=== PATIENT | male | born 1975 | race Caucasian/White ===

== ENCOUNTER 2017-07-01 23:39 | Emergency (ER) | payer SELFPAY ==
[2017-07-01 23:51] VITALS: BMI 25.1
[2017-07-01] MEDS ORDERED: Multivitamin (MVI) 10 ML, Thiamine 100 MG, Folic Acid 1 MG in Sodium Chloride 0.9% 1,00... IV ONE (23:53)
--- NOTE | 2017-07-01 23:54 | ED PDOC ---
Arrival/HPI <Burke Patrick - Last Filed: 07/02/17 00:24> - General Historian: Patient, Police EM Caveat: Intoxicated - History of Present Illness Time/Duration: Prior to Arrival Symptom Onset: Gradual Symptom Course: Unchanged Quality: Unable to Describe Severity Level: Mild <Charlee Montoya - Last Filed: 07/02/17 05:39> - General Chief Complaint: Alcohol Ingestion Time Seen by Provider: 07/01/17 23:53 - History of Present Illness Narrative History of Present Illness (Text): 07/01/17 23:54 42M brought in to ED via EMS/police for public intoxication with mechanical fall. Pt was found by police laying down on ground outside, attempting to sleep. Pt brought in for public intoxication and superficial facial abrasions. Pt pleasantly intoxicated, history limited due to intoxication. PMH:Denies PSH: Denies All: NKDA SH: Admits to ETOH use, admits to tobacco use, denies illicit drug us (Charlee Montoya) Past Medical History - Provider Review Nursing Documentation Reviewed: Yes - Past History Past History: No Previous - Infectious Disease Hx of Infectious Diseases: None - Tetanus Immunization Tetanus Immunization: Unknown - Past Medical History Past Medical History: No Previous - Psychiatric Hx Depression: No Hx Emotional Abuse: No Hx Physical Abuse: No Hx Substance Use: No - Past Surgical History Past Surgical History: No Previous - Suicidal Assessment Feels Threatened In Home Enviroment: No <Charlee Montoya - Last Filed: 07/02/17 05:39> Family/Social History - Physician Review Nursing Documentation Reviewed: Yes Family/Social History: No Known Family HX Smoking Status: Heavy Smoker > 10 Cigarettes Daily Hx Alcohol Use: Yes Hx Substance Use: No Hx Substance Use Treatment: No <Charlee Montoya - Last Filed: 07/02/17 05:39> Allergies/Home Meds <Burke Patrick - Last Filed: 07/02/17 00:24> <Charlee Montoya - Last Filed: 07/02/17 05:39> Allergies/Adverse Reactions: Allergies No Known Allergies Allergy (Verified 07/01/17 23:54) Review of Systems - Physician Review All systems were reviewed & negative as marked: Yes - Review of Systems Systems not reviewed;Unavailable: Intoxicated <Charlee Montoya - Last Filed: 07/02/17 05:39> Physical Exam Vital Signs Reviewed: Yes Temperature: Afebrile Blood Pressure: Normal Pulse: Regular Respiratory Rate: Normal Appearance: Positive for: Non-Toxic, Comfortable, Other (pleasantly intoxicated) Pain Distress: None Mental Status: No: Alert and Oriented X 3 - Systems Exam Head: Present: Contusion (front of forehead), Swelling (small area over front of forehead), Abrasion (over frontal hairline and bridge of nose). No: Atraumatic Pupils: Present: Sluggish Extroacular Muscles: Present: EOMI Conjunctiva: No: Injected Mouth: Present: Moist Mucous Membranes, Normal Tounge, Normal Teeth Nose (External): Present: Abrasion. No: Atraumatic Neck: Present: Normal Range of Motion Respiratory/Chest: Present: Clear to Auscultation, Good Air Exchange. No: Respiratory Distress, Accessory Muscle Use Cardiovascular: Present: Regular Rate and Rhythm. No: Murmurs, Normal S1, S2 Abdomen: Present: Normal Bowel Sounds. No: Tenderness, Distention, Peritoneal Signs Back: Present: Normal Inspection. No: CVA Tenderness Upper Extremity: Present: Normal Inspection. No: Cyanosis, Edema Lower Extremity: Present: Normal Inspection. No: Edema Neurological: Present: GCS=15, CN II-XII Intact. No: Speech Normal (slurred) Skin: Present: Warm, Dry, Normal Color, Abrasion (over frontal forehead and bridge of nose) Psychiatric: Present: Alert, Agitated, Intoxicated. No: Oriented x 3, Normal Insight, Normal Concentration <Charlee Montoya - Last Filed: 07/02/17 05:39> Vital Signs Temp Pulse Resp BP Pulse Ox 07/02/17 03:50 60 18 101/68 96 07/02/17 00:20 98.3 F 86 18 144/79 95 Medical Decision Making <Burke Patrick - Last Filed: 07/02/17 00:24> <Charlee Montoya - Last Filed: 07/02/17 05:39> ED Course and Treatment: Impression: Pt seen and evaluated with senior medical director. Pt brought in for alcohol intoxication status post fall with multiple facial abrasions. Aware and agree with HPI, clinical findings, plan, and management. Plan: -- Labs, alcohol level -- Urine drug screen -- Banana bag -- Reassess and disposition (Burke Patrick) 07/02/17 00:05 Pt seen/evaluated, currently intoxicated, will order drug screen, alcohol level and clean wounds. 07/02/17 00:09 Pt became agitated, continues with intoxication, unable to make medical decisions, will restrain due to agitation/violent behavior and give sedatives 07/02/17 02:00 Pt currently sleeping 07/02/17 03:24 Pt still sleeping 07/02/17 04:21 Pt still sleeping 07/02/17 05:38 Pt continues asleep. 07/02/17 07:[address] Mayes, pending pt sobriety, reassessment for final disposition. (Charlee Montoya) - Lab Interpretations Lab Results: Lab Results 07/02/17 00:35: Urine Opiates Screen Negative, Urine Methadone Screen Negative, Ur Barbiturates Screen Negative, Ur Phencyclidine Scrn Negative, Ur Amphetamines Screen Negative, U Benzodiazepines Scrn Negative, U Oth Cocaine Metabols Negative, U Cannabinoids Screen Negative 07/02/17 00:15: Alcohol, Quantitative 355 H* - RAD Interpretation Radiology Orders: 07/02/17 05:35 Brain [HEAD W/O CONTRAST] [CT] Stat - Medication Orders Current Medication Orders: Multivitamins/Vitamin C 10 ml/Thiamine HCl 100 mg/ Folic Acid 1 mg/ Sodium Chloride 1,011.2 mls @ 100 mls/hr IV .Q10H7M ONE Stop: 07/02/17 09:59 Last Admin: 07/02/17 00:20 Dose: 100 mls/hr eMAR Start Stop Document 07/02/17 00:20 RD (Rec: 07/02/17 01:40 RD [id number]) Intravenous Solution Start Date 07/02/17 Start Time 00:20 Discontinued Medications Haloperidol Lactate (Haldol) 5 mg IM STAT STA PRN Reason: Protocol Stop: 07/02/17 00:09 Last Admin: 07/02/17 00:16 Dose: 5 mg IM Administration Charges Document 07/02/17 00:16 RD (Rec: 07/02/17 00:16 RD [id number]) Injection Site MAR Injection Site Right Deltoid Charges for Administration # of IM Administrations 1 Lorazepam (Ativan) 2 mg IM ONCE ONE PRN Reason: Protocol Stop: 07/02/17 00:07 Last Admin: 07/02/17 00:16 Dose: 2 mg IM Administration Charges Document 07/02/17 00:16 RD (Rec: 07/02/17 00:17 RD [id number]) Injection Site MAR Injection Site Right Deltoid Charges for Administration # of IM Administrations 1 Tetanus/Reduced Diphtheria/Acell Pertussis (Boostrix Vaccine Inj) 0.5 ml IM .ONCE ONE Stop: 07/02/17 00:03 Last Admin: 07/02/17 01:42 Dose: 0.5 ml MAR Immunization Data Document 07/02/17 01:42 RD (Rec: 07/02/17 01:42 RD [id number]) Immunization Data Vaccine [employer] Vaccine Lot Number [id number] Vaccine Expiration Date 04/01/19 Site Given Left Deltoid Route Intramuscular Immunization Units ml - PA / [employer]ER / Resident Statement / has reviewed & agrees with the documentation as recorded. / has examined the patient and agrees with the treatment plan. <Burke Patrick - Last Filed: 07/02/17 00:24> Disposition/Present on Arrival <Burke Patrick - Last Filed: 07/02/17 00:24> - Present on Arrival Any Indicators Present on Arrival: No History of DVT/PE: No History of Uncontrolled Diabetes: No Urinary Catheter: No History Surgical Site Infection Following: None - Disposition Have Diagnosis and Disposition been Completed?: No Disposition Time: 07:00 <Charlee Montoya - Last Filed: 07/02/17 05:39> - Disposition Diagnosis: Alcohol abuse with intoxication, Facial abrasion Patient Problems: Current Active Problems Problem Status Onset Alcohol abuse with intoxication Acute Facial abrasion Acute Condition: STABLE Forms: [employer] (Bulgarian)
[2017-07-02] MEDS ORDERED: TDAP Vaccine 0.5 mL Syr IM ONE (00:02)
[2017-07-02 00:20] VITALS: TEMP 98.3
--- NOTE | 2017-07-02 07:07 | CT ---
EXAM: CT Head Without Intravenous Contrast CLINICAL HISTORY: 42 years old, male; Injury or trauma; Injury Trauma not specified. ; Initial encounter; Abrasion; Head, generalized TECHNIQUE: Axial computed tomography images of the head/brain without intravenous contrast. All CT scans at this facility use one or more dose reduction techniques, viz.: automated exposure control; ma/kV adjustment per patient size (including targeted exams where dose is matched to indication; i.e. head); or iterative reconstruction technique. COMPARISON: No relevant prior studies available. FINDINGS: Brain: Examination of the brain demonstrates normal structure and attenuation.The cortical aaron / white matter interfaces are preserved throughout the brain.No acute infarction, masses or hemorrhage is seen. No acute intracranial abnormality is identified.There is no hyperdense MCA sign.Examination of the posterior fossa demonstrates no significant abnormality. Ventricles: The ventricular system is not dilated and is appropriate for the patient's age. Bones/joints: Unremarkable. No acute fracture. Soft tissues: Unremarkable. Sinuses: Left maxillary and bilateral ethmoid sinusitis. Mastoid air cells: Unremarkable as visualized. No mastoid effusion. IMPRESSION: No acute infarction, masses or hemorrhage is seen. No acute intracranial abnormality is identified.
[2017-07-02 07:39] VITALS: BP 120/82; PULSE 70; RESP 16; O2SAT 99
== END 2017-07-02 07:39 | disposition home or self-care (01) ==
LOC: ED 23:39
DX: F10.129 Alcohol abuse with intoxication, unspecified (principal); Y90.8 Blood alcohol level of 240 mg/100 ml or more; S00.81XA Abrasion of other part of head, initial encounter; W18.30XA Fall on same level, unspecified, initial encounter; Y93.9 Activity, unspecified; Y92.9 Unspecified place or not applicable; Z23 Encounter for immunization
CPT/HCPCS: 70450; 90471; 90715; 96372; 99284; G0480; J1630; J2060; J3411; J7040

== ENCOUNTER 2018-02-27 07:57 | Emergency (ER) | payer MEDICAID ==
[2018-02-27 07:57] VITALS: BMI 25.1
--- NOTE | 2018-02-27 09:43 | ED PDOC ---
Arrival/HPI - General Historian: Patient <Sid Beaver - Last Filed: 02/27/18 17:24> - History of Present Illness Severity Level: Severe Activities at Onset: Rest Context: Home <Srikanth Kong - Last Filed: 02/27/18 20:20> - General Chief Complaint: Back Pain Time Seen by Provider: 02/27/18 08:41 - History of Present Illness Narrative History of Present Illness (Text): 02/27/18 09:54 This is a 42 yo M with PMH of prior alcohol abuse (current use up to 6 pack per day, last drink 03/26/18) and tobacco abuse (1ppd x 22 yrs) who presents for back pain and baseline SOB x1 month, with acute worsening of shortness of breath and left-sided chest pain x24 hours. As per patient, shortness of breath at baseline is due to worsened back pain with deep breaths, non-exertional. Yesterday, acute worsening of shortness of breath and start of chest pain began while walking to work, and did not improve with sitting and resting. Denies any similar episodes in past. Denies any personal hx of HTN, DM, CAD, but also admits to not following up with doctors since childhood. Only reported family hx is DM in mother, denies HTN/CAD in any 1st degree relatives. Denies illicits. No chest pain at rest now, but still has back pain (bilateral lumbar regions, no spinal involvement) without radiation, and still has worsening pain with deep breaths. Admits to dizziness even at rest, room spinning during the initial exacerbation but not currently, and near-syncope but no actual syncope. All other ROS in 12-system review negative. (Sid Beaver) Past Medical History - Past History Past History: No Previous - Infectious Disease Hx of Infectious Diseases: None - Tetanus Immunization Tetanus Immunization: Unknown - Past Medical History Past Medical History: No Previous - Psychiatric Hx Depression: No Hx Emotional Abuse: No Hx Physical Abuse: No Hx Substance Use: No - Past Surgical History Past Surgical History: No Previous - Anesthesia Hx Anesthesia: No Hx Anesthesia Reactions: No Hx Malignant Hyperthermia: No - Suicidal Assessment Feels Threatened In Home Enviroment: No <Sid Beaver - Last Filed: 02/27/18 17:24> - Provider Review Nursing Documentation Reviewed: Yes - Travel History Have you recently traveled outside [place] w/in the past 3 mons?: No <Srikanth Kong - Last Filed: 02/27/18 20:20> Family/Social History Family/Social History: Diabetes (mother). denies: Hypertension, CAD/[place] Smoking Status: Heavy Smoker > 10 Cigarettes Daily Hx Alcohol Use: Yes Hx Substance Use: No Hx Substance Use Treatment: No <Sid Beaver - Last Filed: 02/27/18 17:24> - Physician Review Nursing Documentation Reviewed: Yes <Srikanth Kong - Last Filed: 02/27/18 20:20> Allergies/Home Meds <Sid Beaver - Last Filed: 02/27/18 17:24> <Srikanth Kong - Last Filed: 02/27/18 20:20> Allergies/Adverse Reactions: Allergies No Known Allergies Allergy (Verified 02/27/18 08:33) Home Medications: Home Meds Medication Instructions Recorded Confirmed No Known Home Med 02/27/18 02/27/18 Review of Systems - Review of Systems Constitutional: Normal Eyes: Other (sensation of room spinning during exacerbation, none currently). absent: Vision Changes, Photophobia ENT: Normal. absent: Hearing Changes Respiratory: SOB (acutely worsened SOB x 24 hours, some at baseline x1 month). absent: Normal, Cough, Sputum, Wheezing Cardiovascular: Chest Pain (left-sided CP x24 hours without radiation, improved today), Palpitations. absent: Syncope (near-sycnope, but no syncope) Gastrointestinal: Normal. absent: Abdominal Pain, Constipation, Diarrhea, Nausea, Vomiting Genitourinary Male: Normal. absent: Dysuria, Hematuria Musculoskeletal: Back Pain (x1 month, bilateral lumbar region, no radiation, no spinal involvement) Neurological: Dizziness (on exertion and at rest, still present at time of exam) . absent: Normal, Focal Weakness, Gait Changes, Seizure Endocrine: Normal. absent: Diaphoresis Psychiatric: Normal. absent: Anxiety <Sid Beaver - Last Filed: 02/27/18 17:24> Physical Exam Vital Signs Reviewed: Yes Temperature: Afebrile Blood Pressure: Normal Pulse: Tachycardic Respiratory Rate: Normal Appearance: Positive for: Well-Appearing, Non-Toxic Pain Distress: None Mental Status: Positive for: Alert and Oriented X 3 - Systems Exam Head: Present: Atraumatic, Normocephalic Pupils: Present: PERRL. No: Sluggish, Non-Reactive, Pinpoint Extroacular Muscles: Present: EOMI. No: Gaze Palsy, Entrapment Conjunctiva: Present: Normal. No: Injected, Icteric Mouth: Present: Moist Mucous Membranes, Normal Lips, Normal Tounge, Normal Teeth. No: Dry, Drooling Nose (External): Present: Atraumatic. No: Abrasion, Laceration Nose (Internal): Present: Normal Inspection, No Active Bleeding. No: Epistaxis Neck: Present: Normal Range of Motion, Other (sternocleidomastoids not tense/ spastic, no tenderness in neck or arms with rotation/sidebending/compression). No: MIDLINE TENDERNESS, Paraspinal Tenderness, JVD Respiratory/Chest: Present: Clear to Auscultation, Good Air Exchange. No: Respiratory Distress, Accessory Muscle Use, Wheezes, Decreased Breath Sounds, Rales, Retracting, Rhonchi Cardiovascular: Present: Normal S1, S2, Tachycardic (tachy but regular rhythm). No: Murmurs, Irregular Rhythm Abdomen: Present: Normal Bowel Sounds. No: Tenderness, Distention, Peritoneal Signs, Feeding Tubes Back: Present: Other (reports tenderness "deep" at bilateral lumbar lateral regions, not acutely tender to palpation, mild spasm of quadratus lumborum region appreciated on exam). No: CVA Tenderness, Midline Tenderness, Paraspinal Tenderness Upper Extremity: Present: Normal Inspection, Normal ROM, NORMAL PULSES. No: Cyanosis, Edema, Tenderness, Swelling, Erythema, Deformity Lower Extremity: Present: Normal Inspection, NORMAL PULSES, Normal ROM. No: Edema, CALF TENDERNESS, Cyanosis, Tenderness, Swelling, Erythema, Deformity Neurological: Present: GCS=15, CN II-XII Intact, Speech Normal, Motor Func Grossly Intact, Normal Sensory Function Skin: Present: Warm, Other (Flushed diffusely, mildly diaphoretic). No: Rashes Psychiatric: Present: Alert, Oriented x 3, Normal Insight, Normal Concentration , Anxious <Sid Beaver - Last Filed: 02/27/18 17:24> Vital Signs Temp Pulse Resp BP Pulse Ox 02/27/18 15:17 98.4 F 64 20 150/94 H 97 02/27/18 14:00 88 18 154/87 H 99 02/27/18 12:34 82 18 161/98 H 98 02/27/18 10:00 80 16 162/88 H 99 02/27/18 08:38 98.3 F 79 88 H 155/89 H Medical Decision Making Reassessment Condition: Improving,but remains with symptoms <Sid Beaver - Last Filed: 02/27/18 17:24> Re-evaluation Time: 15:00 - Lab Interpretations I have reviewed the lab results: Yes Interpretation: All labs normal - RAD Interpretation Funding Analyst: Radiologist - EKG Interpretation Interpreted by ED Physician: Yes Type: 12 lead EKG Comparison: Similar to previous EKG <Srikanth Kong - Last Filed: 02/27/18 20:20> ED Course and Treatment: 02/27/18 10:16 Given tobacco hx and lack of medical follow up, plus corresponding chest pain and SOB, will need to rule out ACS. EKG, CXR, Trop, CBC, CMP, Mg, Phos, UTox, Alcohol lvl ordered, f/u, pending disposition. IF CXR is negative for widened mediastinum, will give ASA 81mg PO x1. 02/27/18 11:26 D-dimer elevated, will obtain CTA chest to rule out PE. Trop x1 negative, EKG NSR with normal intervals. ASA 81mg PO x1 ordered. 02/27/18 12:18 CTA negative for PE. Pending repeat trop at 4 hours, if negative, then patient wants to be discharged. Explained that if he wishes to go, he MUST follow up promptly with an outpatient physician for further workup. Also provided option of 24-hour obs admit for additional workup to rule out ACS. Patient declined admission, stating he will comply with prompt outpatient followup. Also instructed to start taking daily 81mg aspirin, and to avoid smoking and alcohol use while awaiting follow up, which patient expressed understanding and agreeement with. 02/27/18 15:08 Repeat Troponin negative. Patient again instructed to follow up in 2-3 days as outpatient, and he again expressed understanding and agreement with these instructions. He was then discharge to home. Patient seen, reviewed, and discussed with attending, Dr. Kong. (Sid Beaver) 02/27/18 Plan: chest pain, lower back pain -- EKG -- Labs -- Aspirin, Valium, Toradol -- Reassess and disposition Progress Notes: In agreement with resident note, which includes further HPI details. Patient was seen and evaluated with resident, came up with plan and treatment together. I performed the hx and physical exam of the patient and discussed their mgt with the RESIDENT. I reviewed the RESIDENT's NOTE and agree with the assessment and plan of care. vital signs stable pt is comfortable pt is not in any distress pt is made aware of his medical results pt is encouraged smoking cessation/avoid drinking alcohol pt is encouraged outpt f/u pt will be discharged home (Srikanth Kong) - Lab Interpretations Lab Results: 02/27/18 10:10 02/27/18 10:10 Lab Results 02/27/18 14:15: Troponin I < 0.01 02/27/18 11:20: Urine Opiates Screen Negative, Urine Methadone Screen Negative, Ur Barbiturates Screen Negative, Ur Phencyclidine Scrn Negative, Ur Amphetamines Screen Negative, U Benzodiazepines Scrn Negative, U Oth Cocaine Metabols Negative, U Cannabinoids Screen Negative 02/27/18 10:10: pO2 70 H, VBG pH 7.39, VBG pCO2 43.0, VBG HCO3 26.0, VBG Total CO2 27.3, VBG O2 Sat (Calc) 97.6 H, VBG Base Excess 0.8, VBG Potassium 4.2, Sodium 138.0, Chloride 109.0 H, Glucose 80, Lactate 1.2, FiO2 21.0, Venous Blood Potassium 4.2 02/27/18 10:10: Alcohol, Quantitative 25 H 02/27/18 10:10: Sodium 142, Chloride 108 H, Potassium 4.3, Carbon Dioxide 24, Anion Gap 14, BUN 13, Creatinine 0.7 L, Est GFR ( Amer) > 60, Est GFR ( Non-Af Amer) > 60, Random Glucose 78, Calcium 8.9, Phosphorus 1.9 L, Magnesium 1.7, Total Bilirubin 0.2, AST 29, ALT 32, Alkaline Phosphatase 60, Troponin I < 0.01, Total Protein 6.9, Albumin 3.9, Globulin 2.9, Albumin/Globulin Ratio 1.3, Amylase 59, Lipase 86 02/27/18 10:10: WBC 7.1, RBC 4.69, Hgb 14.6, Hct 42.3, MCV 90.2, MCH 31.1, MCHC 34.5, RDW 13.3, Plt Count 277, MPV 9.0, Gran % 61.9, Lymph % (Auto) 30.6, Foster % (Auto) 6.3 H, Eos % (Auto) 0.6 L, Baso % (Auto) 0.6, Gran # 4.41, Lymph # ( Auto) 2.2, Foster # (Auto) 0.5, Eos # (Auto) 0.0, Baso # (Auto) 0.04 02/27/18 10:10: D-Dimer, Quantitative 328 H - RAD Interpretation Narrative RAD Interpretations (Text): 02/27/18 12:00 Chest X-ray: Creator : Tomasa Walker MD COMPARISON: 09/04/2013. FINDINGS: LINES AND TUBES: None. LUNG AND PLEURA: The lungs are well inflated and clear. No pleural effusion or pneumothorax. HEART AND MEDIASTINUM: The heart is not enlarged. The hilar and mediastinal contours are within normal limits. SKELETAL STRUCTURES: The bony structures are within normal limits for the patient's age. VISUALIZED UPPER ABDOMEN: Normal. OTHER FINDINGS: None. IMPRESSION: No active pulmonary disease. 02/27/18 12:[address]: Creator : Tomasa Walker MD FINDINGS: PULMONARY ARTERIES: There are no filling defects in the pulmonary arteries to suggest acute pulmonary embolism. AORTA: The aorta is not dilated. LUNGS: The lungs are well inflated and clear. There is linear atelectasis in the lingula. . No nodule, mass or pulmonary consolidation. PLEURAL SPACES: No effusion or pneuomothorax. HEART: The heart is normal in size. No pericardial effusion. LYMPH NODES: No pathologic mediastinal or hilar lymphadenopathy. BONES, CHEST WALL: Within normal limits for the patient's age. No fracture or destructive lesion OTHER FINDINGS: Unremarkable. IMPRESSION: No CTA evidence for acute pulmonary embolism. Clear lungs. (Srikanth Kong) Radiology Orders: 02/27/18 09:24 CHEST TWO VIEWS (PA/LAT) [RAD] Stat 02/27/18 11:17 ANGIO CHEST PE PROTOCOL [CT] Stat - EKG Interpretation EKG Interpretation (Text): 02/27/18 20:20 NSR at 85 bpm, normal axis, no ectopy, no st-t changes, normal EKG (Srikanth Kong) - Medication Orders Current Medication Orders: Discontinued Medications Aspirin (Aspirin Chewable) 81 mg PO STAT STA Stop: 02/27/18 12:04 Last Admin: 02/27/18 12:33 Dose: 81 mg Diazepam (Valium) 5 mg PO ONCE PRN; Protocol PRN Reason: back pain Ketorolac Tromethamine (Toradol) 15 mg IVP STAT STA Stop: 02/27/18 10:23 Last Admin: 02/27/18 11:04 Dose: 15 mg [facility] Pain Assessment Document 02/27/18 11:04 [facility] (Rec: 02/27/18 11:05 [id number] Pain Reassessment Is this a pain reassessment? No Sleep Is patient sleeping during reassessment? No Presence of Pain Presence of Pain Yes Pain Scale Used Pain Scale Used Numeric Description Description Intermittent IVP Administration Document 02/27/18 11:04 [facility] (Rec: 02/27/18 11:05 [id number] Charges for Administration # of IVP Administrations 1 Re-Assess: [facility] Pain Assessment Document 02/27/18 12:04 [facility] (Rec: 02/27/18 15:02 [id number] Pain Reassessment Is this a pain reassessment? Yes Sleep Is patient sleeping during reassessment? No Presence of Pain Presence of Pain Yes Description Description Intermittent Intensity of Pain at present 4 <Sid Beaver - Last Filed: 02/27/18 17:24> - PA / FURNACE REPAIRER HELPER / Resident Statement MD/DO has reviewed & agrees with the documentation as recorded. MD/DO has examined the patient and agrees with the treatment plan. - Scribe Statement The provider has reviewed the documentation as recorded by the Scribe <Srikanth Kong - Last Filed: 02/27/18 20:20> - Scribe Statement Anamaria Mcleod Provider Scribe Attestation: All medical record entries made by the Scribe were at my direction and personally dictated by me. I have reviewed the chart and agree that the record accurately reflects my personal performance of the history, physical exam, medical decision making, and the department course for this patient. I have also personally directed, reviewed, and agree with the discharge instructions and disposition. (Srikanth Kong) Disposition/Present on Arrival - Present on Arrival Any Indicators Present on Arrival: No History of DVT/PE: No History of Uncontrolled Diabetes: No Urinary Catheter: No History of Decub. Ulcer: No History Surgical Site Infection Following: None - Disposition Have Diagnosis and Disposition been Completed?: Yes Disposition Time: 15:08 Patient Plan: Discharge <Sd,Sid - Last Filed: 02/27/18 17:24> <Srikanth Kong - Last Filed: 02/27/18 20:20> - Disposition Diagnosis: Shortness of breath, Chest pain, Tobacco abuse Disposition: HOME/ ROUTINE Condition: GOOD Discharge Instructions (ExitCare): Smoking: Not Just Harmful to Your Lungs and Heart, Shortness of Breath (Dyspnea), Chest Pain (ED) Print Language: YAKUT Additional Instructions: -You were seen in the [facility] for shortness of breath and left sided chest pain x1 day. Labs and scans obtained indicated that you do not have a blood clot in your lungs (Pulmonary Embolism), and were not suggestive of Acute Coronary Syndrome (ACS). -Please establish yourself with a PMD and follow up within 2-3 days of discharge. You have been given a card for the [facility] here in the hospital if you wish to follow up here. -Please abstain from further alcohol and tobacco use until you follow up with your outpatient physician. -You were offered an admission for observation, but you refused. It is extremely important that you follow up with physicians as instructed, and avoid further alcohol or tobacco use until that time. -Please start taking a daily 81mg aspirin until you have followed up with an outpatient physician. You have already been given 1 dose today. 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 -Please return to a hospital if you experience new or concerning symptoms. Referrals: Wu White, [Primary Care Provider] - Follow up with primary Forms: [employer] (Georgian), WORK NOTE
[2018-02-27 10:23] LABS: BASO # 0.04 K/mm3 (0.0-2.0); BASO % 0.6 % (0.0-3.0); EOS % 0.6 % (1.5-5.0); GRAN # 4.41 (1.4-6.5); GRAN % 61.9 % (50.0-68.0); HEMOGLOBIN 14.6 g/dL (14.0-18.0); LYMPH # 2.2 (1.2-3.4); LYMPH % 30.6 % (22.0-35.0); MEAN CELL VOLUME 90.2 fl (80.0-105.0); MEAN CORPUSCULAR HEMOGLOBIN 31.1 pg (25.0-35.0); MEAN CORPUSCULAR HGB CONC 34.5 g/dl (31.0-37.0); MONO # 0.5 (0.1-0.6); MONO % 6.3 % (1.0-6.0); RBC 4.69 10^6/uL (3.5-6.1); RED CELL DISTRIBUTION WIDTH 13.3 % (11.5-14.5); VENOUS BLOOD GAS BASE EXCESS 0.8 mmol/L (0.0-2.0); VENOUS BLOOD GAS PO2 70 mm/Hg (30-55); VENOUS BLOOD PH 7.39 (7.32-7.43); WHITE BLOOD COUNT 7.1 10^3/ul (4.5-11.0)
[2018-02-27 10:37] LABS: ALB/GLOB RATIO 1.3 (1.1-1.8); ALBUMIN 3.9 g/dL (3.0-4.8); AMYLASE 59 U/L (35-125); CALCIUM 8.9 mg/dL (8.4-10.5); GFR AFRICAN-AMERICAN > 60; GFR NON-AFRICAN AMERICAN > 60; LIPASE 86 U/L (23-300)
[2018-02-27 10:48] LABS: TROPONIN I < 0.01 ng/mL
[2018-02-27 10:50] LABS: ALT/SGPT 32 U/L (7-56); AST/SGOT 29 U/L (17-59); BLOOD UREA NITROGEN 13 mg/dL (7-21)
[2018-02-27] MEDS ORDERED: Iohexol 350 MG/100 ML VIAL ONE (11:28)
--- NOTE | 2018-02-27 11:42 | RAD ---
HISTORY: COMPARISON: 09/04/2013. TECHNIQUE: Chest PA and lateral FINDINGS: LINES AND TUBES: None. LUNG AND PLEURA: The lungs are well inflated and clear. No pleural effusion or pneumothorax. HEART AND MEDIASTINUM: The heart is not enlarged. The hilar and mediastinal contours are within normal limits. SKELETAL STRUCTURES: The bony structures are within normal limits for the patient's age. VISUALIZED UPPER ABDOMEN: Normal. OTHER FINDINGS: None. IMPRESSION: No active pulmonary disease.
[2018-02-27 11:49] LABS: BARBITURATES, UR NEGATIVE (NEGATIVE); BENZODIAZEPINES, UR NEGATIVE (NEGATIVE); OPIATES, UR NEGATIVE (NEGATIVE); PHENCYCLIDINE, UR NEGATIVE (NEGATIVE)
--- NOTE | 2018-02-27 12:11 | CT ---
PROCEDURE: CT Chest with contrast (Pulmonary Angiogram) HISTORY: Chest pain, shortness of breath, dimer, smoker COMPARISON: Plain radiographs performed earlier the same day. TECHNIQUE: Axial computed tomography images were obtained of the chest in the pulmonary arterial phase of enhancement. Coronal and sagittal reformatted images were created and reviewed. Intravenous contrast dose: 100 mL Omnipaque 350 Radiation dose: Total exam DLP = 509.82 mGy-cm. This CT exam was performed using one or more of the following dose reduction techniques: Automated exposure control, adjustment of the mA and/or kV according to patient size, and/or use of iterative reconstruction technique. FINDINGS: PULMONARY ARTERIES: There are no filling defects in the pulmonary arteries to suggest acute pulmonary embolism. AORTA: The aorta is not dilated. LUNGS: The lungs are well inflated and clear. There is linear atelectasis in the lingula. . No nodule, mass or pulmonary consolidation. PLEURAL SPACES: No effusion or pneuomothorax. HEART: The heart is normal in size. No pericardial effusion. LYMPH NODES: No pathologic mediastinal or hilar lymphadenopathy. BONES, CHEST WALL: Within normal limits for the patient's age. No fracture or destructive lesion OTHER FINDINGS: Unremarkable. IMPRESSION: No CTA evidence for acute pulmonary embolism. Clear lungs.
[2018-02-27 15:19] VITALS: BP 150/94; PULSE 64; RESP 20; TEMP 98.4; O2SAT 97
--- NOTE | 2018-02-27 15:57 | CARD ---
APPROVED REPORT EKG Measurement Heart [id number] <Conclusion> Normal sinus rhythm Normal ECG
== END 2018-02-27 15:20 | disposition home or self-care (01) ==
LOC: ED 07:57
DX: R06.02 Shortness of breath (principal); R07.9 Chest pain, unspecified; F17.210 Nicotine dependence, cigarettes, uncomplicated
CPT/HCPCS: 71046; 71275; 80053; 80320; 80324; 80345; 80346; 80349; 80353; 80358; 80361; 82150; 82803; 83690; 83735; 83992; 84100; 84484; 85025; 85378; 93005; 96374; 99283; J1885; Q9967

== ENCOUNTER 2019-02-20 13:16 | Observation (INO) | payer MEDICAID, OTHER ==
[2019-02-20] MEDS ORDERED: Morphine 4 mg/ml ISec IVP STA ×2 (14:42→18:07)
--- NOTE | 2019-02-20 15:29 | ED PDOC ---
Arrival/HPI - General Historian: Patient - History of Present Illness Narrative History of Present Illness (Text): 02/20/19 15:25 A 43 year old male presents to the emergency department with a 3 day history of worsening abdominal pain and back pain. He says the pain started in the abdomen about 3 days ago and has been gradually worsening. He describes the pain as sharp and achy and rates the pain as a 7 out of 10. He is also complaining of severe lower back pain. 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 He denies testicular pain, numbness, weakness, or tingling in the extremities. He does state that intermittently he has been getting cramping in his hands. No medications were taken for pain at home today. Patient states he is a smoker and smokes packs of cigarettes per day and states he drinks only on Fridays, and did not drink this past Monday. She denies fevers, chills, headache, dizziness, chest pain, shortness of breath, dyspnea on exertion, cough, nausea, vomiting, diarrhea, neck pain, urinary/bowel changes, or any other complaint. Time/Duration: Other (3 days) Symptom Onset: Sudden Symptom Course: Unchanged Activities at Onset: Rest, Light Context: Home <Kelsi Pollard - Last Filed: 02/20/19 20:17> <Sean Mayes - Last Filed: 02/25/19 12:06> - General Chief Complaint: Back Pain Time Seen by Provider: 02/20/19 14:09 Past Medical History - Provider Review Nursing Documentation Reviewed: Yes Primary Care Provider: Non [facility] Provider, - Past History Past History: No Previous - Infectious Disease Hx of Infectious Diseases: None - Tetanus Immunization Tetanus Immunization: Unknown - Past Medical History Past Medical History: No Previous - Psychiatric Hx Depression: No Hx Emotional Abuse: No Hx Physical Abuse: No Hx Substance Use: No - Past Surgical History Past Surgical History: No Previous - Anesthesia Hx Anesthesia: No Hx Anesthesia Reactions: No Hx Malignant Hyperthermia: No - Suicidal Assessment Feels Threatened In Home Enviroment: No <Kelsi Pollard - Last Filed: 02/20/19 20:17> Family/Social History - Physician Review Nursing Documentation Reviewed: Yes Family/Social History: No Known Family HX Smoking Status: Heavy Smoker > 10 Cigarettes Daily Hx Alcohol Use: Yes Hx Substance Use: No Hx Substance Use Treatment: No <Kelsi Pollard - Last Filed: 02/20/19 20:17> Allergies/Home Meds <Kelsi Pollard - Last Filed: 02/20/19 20:17> <Sean Mayes - Last Filed: 02/25/19 12:06> Allergies/Adverse Reactions: Allergies No Known Allergies Allergy (Verified 02/20/19 14:02) Review of Systems - Physician Review All systems were reviewed & negative as marked: Yes - Review of Systems Constitutional: absent: Fatigue, Fevers ENT: absent: Sore Throat, Sinus Congestion Respiratory: absent: SOB, Cough Cardiovascular: absent: Chest Pain, Palpitations, MITCHELL Gastrointestinal: Abdominal Pain, Nausea. absent: Stool Changes, Diarrhea, Vomiting Genitourinary Male: absent: Dysuria, Frequency, Hematuria, Urinary Output C hanges Musculoskeletal: Back Pain. absent: Arthralgias, Neck Pain Skin: absent: Rash, Pruritis Neurological: absent: Headache, Dizziness, Speech Changes, Facial Droop Psychiatric: absent: Anxiety, Depression, Suicidal Ideation <Kelsi Pollard - Last Filed: 02/20/19 20:17> Physical Exam Vital Signs Reviewed: Yes Vital Signs Temp Pulse Resp BP Pulse Ox 02/20/19 13:57 98.5 F 108 H 18 172/109 H 99 Temperature: Afebrile Blood Pressure: Hypertensive Pulse: Tachycardic Respiratory Rate: Normal Appearance: Positive for: Well-Appearing, Non-Toxic, Comfortable Pain Distress: None Mental Status: Positive for: Alert and Oriented X 3 - Systems Exam Head: Present: Atraumatic, Normocephalic Conjunctiva: Present: Normal Mouth: Present: Moist Mucous Membranes Nose (Internal): Present: Normal Inspection Neck: Present: Normal Range of Motion Respiratory/Chest: Present: Clear to Auscultation, Good Air Exchange. No: Respiratory Distress, Accessory Muscle Use Cardiovascular: Present: Normal S1, S2, Tachycardic. No: Murmurs Abdomen: Present: Tenderness (Diffuse abdominal tenderness), Normal Bowel Sounds, Guarding. No: Distention, Peritoneal Signs, Rebound Back: Present: Midline Tenderness, Paraspinal Tenderness, Other (Diffuse back tenderness). No: Normal Inspection, Pain with Leg Raise Upper Extremity: Present: Normal Inspection, Normal ROM, Neurovascularly Intact. No: Cyanosis, Edema Lower Extremity: Present: Normal Inspection, Normal ROM. No: Edema, CALF TENDERNESS Neurological: Present: GCS=15, Speech Normal Skin: Present: Warm, Dry, Normal Color. No: Rashes Psychiatric: Present: Alert, Oriented x 3, Normal Insight, Normal Concentration, Anxious <Kelsi Pollard - Last Filed: 02/20/19 20:17> Vital Signs Temp Pulse Resp BP Pulse Ox 02/20/19 21:40 94 H 14 145/98 H 96 02/20/19 20:51 94 H 13 155/95 H 100 02/20/19 20:29 68 178/101 H 02/20/19 19:26 97.6 F 78 19 172/101 H 98 02/20/19 17:32 98.4 F 93 H 17 170/97 H 95 02/20/19 15:40 104 H 19 184/98 H 97 02/20/19 13:57 98.5 F 108 H 18 172/109 H 99 <Sean Mayes - Last Filed: 02/25/19 12:06> Medical Decision Making ED Course and Treatment: 02/20/19 15:30 Impression: A 43 year old male presents to the emergency department with a complaint of 3 day duration abdominal and back pain. Plan: -- Angio CT -- EKG -- Chest X-ray -- Urinalysis -- Labs -- Morphine -- Reassess and disposition Prior Visits: Notes and results from previous visits were reviewed. Progress Notes: Patient was found to be hypertensive tachycardic complaining of severe back pain and abdominal pain. Case discussed with Dr. Mayes in depth. CT angio dissection protocol ordered Patient given morphine for pain with Zofran. CBC within normal limits CMP elevated LFTs Magnesium: 1.2 EKG normal sinus rhythm at [address] elevations QTC 475 UA: Ketones > [address]:FINDINGS: CT ANGIOGRAPHY OF THE CHEST WITH & WITHOUT CONTRAST: AORTA (CHEST AND ABDOMEN): The thoracic and abdominal aorta are unremarkable, without aneurysm, dissection or rupture. No intramural thrombus identified in the thoracic aorta on the non-contrast CT scan of the chest.. The ascending thoracic aorta measures approximately 3.4 cm and descending thoracic aorta measures approximately 2.0 cm. The celiac axis, superior mesenteric artery, inferior mesenteric artery and the renal arteries are widely patent. The pelvic arteries are unremarkable. Pulmonary trunk measures approximate 3.1 cm. No evidence of acute central pulmonary embolus LUNGS: No acute consolidation. Small bleb again seen adjacent to the right p arasagittal upper mediastinum. There may also be a tiny left anteriorly located in the right upper lobe. MEDIASTINUM: Heart size within range of normal. No significant pericardial effusion. Several small nonspecific mediastinal lymph nodes are present. No significant hilar adenopathy. Trachea midline and patent with no large central endoluminal lesions. There is a small hiatal hernia. LYMPH NODES: As above. PLEURA: Unremarkable. No pneumothorax. No pleural fluid. BONES: Unremarkable. OTHER FINDINGS: None. CT ANGIOGRAPHY OF THE ABDOMEN AND PELVIS WITH CONTRAST: LIVER: Liver is enlarged measuring nearly 20 cm in CC dimension. Moderate to fairly significant diffuse fatty hepatic infiltration. Portal and splenic veins are opacified. GALLBLADDER AND BILE DUCTS: Gallbladder physiologically distended. No evidence of intraluminal gallbladder calculi. PANCREAS: Pancreas appears unremarkable without masses collections or calcifications. SPLEEN: Spleen exhibits normal size and attenuation pattern without mass collection calcification. ADRENALS: There are no adrenal lesions seen. KIDNEYS AND URETERS: Kidneys demonstrate relatively symmetric nephrograms. No evidence of nephrolithiasis or hydronephrosis. VASCULATURE: Unremarkable. No aortic aneurysm. Mild aortic atherosclerotic calcification or mural plaque present. STOMACH AND BOWEL: Evaluation of the bowel is limited due to the lack of oral contrast material. Stomach is incompletely distended with slight thick-walled appearance. Visualized loops of small bowel exhibit normal contour caliber. No evidence mechanical small bowel obstruction. APPENDIX: Normal appendix. PERITONEUM: Unremarkable. No free fluid. No free air. There is a small fat containing umbilical hernia LYMPH NODES: Unremarkable. No enlarged lymph nodes. BLADDER: Urinary bladder incompletely distended with slight thick-walled appearance. Muscular hypertrophy may contribute however correlation with urinalysis to exclude cystitis. REPRODUCTIVE: Small prostatic calcification present. BONES: No acute fracture. OTHER FINDINGS: None. IMPRESSION: No evidence of aortic aneurysm, rupture or dissection. No evidence to suggest acute central pulmonary embolus Hepatomegaly with significant fatty hepatic infiltration. Small of bleb medial aspect right upper lung field. pt reassessment; pt with continued pain; bp improved, hr improved; still slightly tachycardic, still hypertensive. morphine and zofran added. magnesium added. banana bag added. case discussed with dr joseph; accepts obs admission. will place on remote tele for intractable abdominal pain, with tachycardia and hypertension. impression: Intractable abdominal pain, tachycardia, hypertension Admit to remote telemetry, observational status - Lab Interpretations I have reviewed the lab results: Yes - RAD Interpretation Radiology Orders: 02/20/19 14:40 CHEST PORTABLE [RAD] Stat 02/20/19 14:41 ANGIOGRAPHY DISECTION PROTOCOL [CT] Stat - EKG Interpretation Interpreted by ED Physician: Yes Type: 12 lead EKG - Medication Orders Current Medication Orders: Discontinued Medications Morphine Sulfate (Morphine) 4 mg IVP STAT STA Stop: 02/20/19 14:43 <Kelsi Pollard T - Last Filed: 02/20/19 20:17> - Lab Interpretations Lab Results: PT 11.9 SECONDS (9.4-12.5) 02/22/19 06:10 INR 1.05 02/22/19 06:10 Troponin I < 0.01 ng/mL 02/20/19 15:10 Total Bilirubin 1.1 mg/dL (0.2-1.3) 02/22/19 06:10 AST 44 U/L (17-59) 02/22/19 06:10 ALT 53 U/L (7-56) 02/22/19 06:10 Alkaline Phosphatase 79 U/L (38-126) 02/22/19 06:10 Total Protein 7.0 g/dL (5.8-8.3) 02/22/19 06:10 Albumin 3.9 g/dL (3.0-4.8) 02/22/19 06:10 Globulin 3.2 gm/dL 02/22/19 06:10 Albumin/Globulin Ratio 1.2 (1.1-1.8) 02/22/19 06:10 Lipase 77 U/L (23-300) 02/20/19 15:10 Urine Color Yellow (YELLOW) 02/20/19 15:40 Urine Appearance Sl cloudy (CLEAR) 02/20/19 15:40 Urine pH 6.0 (4.7-8.0) 02/20/19 15:40 Ur Specific Snowflake >= 1.030 (1.005-1.035) 02/20/19 15:40 Urine Protein 30 mg/dL (<30 mg/dL) H 02/20/19 15:40 Urine Glucose (UA) Negative mg/dL (NEGATIVE) 02/20/19 15:40 Urine Ketones >=80 mg/dL (NEGATIVE) 02/20/19 15:40 Urine Blood Negative (NEGATIVE) 02/20/19 15:40 Urine Nitrate Negative (NEGATIVE) 02/20/19 15:40 Urine Bilirubin Small (NEGATIVE) H 02/20/19 15:40 Urine Urobilinogen 0.2 E.U./dL (<1 E.U./dL) 02/20/19 15:40 Ur Leukocyte Esterase Negative Balaji/uL (NEGATIVE) 02/20/19 15:40 Urine RBC None /hpf (0-2) 02/20/19 15:40 Urine WBC 2 - 5 /hpf (0-6) 02/20/19 15:40 Ur Epithelial Cells 4 - 5 /hpf (0-5) 02/20/19 15:40 Urine Bacteria Few /hpf (NONE) 02/20/19 15:40 - RAD Interpretation Radiology Orders: 02/20/19 14:40 CHEST PORTABLE [RAD] Stat 02/20/19 14:41 ANGIOGRAPHY DISECTION PROTOCOL [CT] Stat - Medication Orders Current Medication Orders: Discontinued Medications Dicyclomine HCl (Bentyl) 10 mg PO QID PRN PRN Reason: Abd discomfort Folic Acid (Folic Acid) 1 mg PO DAILY [facility] Last Admin: 02/22/19 09:37 Dose: 1 mg Heparin Sodium (Porcine) (Heparin) 5,000 units SC Q8 [facility]; Protocol Last Admin: 02/21/19 13:12 Dose: 5,000 units Subcutaneous Administrations Document 02/21/19 13:12 GG (Rec: 02/21/19 13:12 GG [id number]) Injection Site MAR Injection Site Right Arm Charges for Administration # of Subcutaneous Administrations 1 Hydralazine HCl (Apresoline) 10 mg IVP ONCE ONE Stop: 02/20/19 20:08 Last Admin: 02/20/19 20:29 Dose: 10 mg IVP Administration Document 02/20/19 20:29 EB (Rec: 02/20/19 20:35 EB [id number]) Charges for Administration # of IVP Administrations 1 MAR Pulse and Blood Pressure Document 02/20/19 20:29 EB (Rec: 02/20/19 20:35 EB [id number]) Pulse Pulse Rate (60-90) 68 Blood Pressure Blood Pressure (100/60-150/90) 178/101 Hydralazine HCl (Apresoline) 10 mg IVP ONCE ONE Stop: 02/20/19 23:42 Last Admin: 02/21/19 00:11 Dose: 10 mg IVP Administration Document 02/21/19 00:11 EBONIE (Rec: 02/21/19 00:11 OLIVZhou [id number]) Charges for Administration # of IVP Administrations 1 MAR Pulse and Blood Pressure Document 02/21/19 00:11 OLIVZhou (Rec: 02/21/19 00:11 OLIVZhou [id number]) Pulse Pulse Rate (60-90) 74 Blood Pressure Blood Pressure (100/60-150/90) 177/97 Multivitamins/Vitamin C 10 ml/Thiamine HCl 100 mg/ Folic Acid 1 mg/ Sodium Chloride 1,011.2 mls @ 100 mls/hr IV .Q10H7M ONE Stop: 02/21/19 04:27 Last Admin: 02/20/19 18:57 Dose: 100 mls/hr eMAR Start Stop Document 02/20/19 18:57 CD (Rec: 02/20/19 19:00 CD [id number] Intravenous Solution Start Date 02/20/19 Start Time 18:59 Magnesium Sulfate (Magnesium Sulfate 2 Gm/50 Ml Water) 2 gm in 50 mls @ 50 mls/hr IVPB ONCE ONE Stop: 02/20/19 19:38 Last Admin: 02/20/19 19:02 Dose: 50 mls/hr eMAR Start Stop Document 02/20/19 19:02 CD (Rec: 02/20/19 19:02 CD [id number] Intravenous Solution Start Date 02/20/19 Start Time 19:02 End Date 02/20/19 End time 20:02 Total Infusion Time 60 Lactated Ringer's (Lactated Ringer's) 1,000 mls @ 100 mls/hr IV .Q10H SHANNAN Last Admin: 02/21/19 09:24 Dose: 100 mls/hr eMAR Start Stop Document 02/21/19 09:24 GGM (Rec: 02/21/19 09:24 GGM [id number]) Intravenous Solution Start Date 02/21/19 Start Time 07:00 Potassium Chloride (Potassium Chloride 10 Meq/100 Ml) 10 meq in 100 mls @ 100 mls/hr IVPB Q2H SHANNAN Stop: 02/21/19 03:59 Last Admin: 02/21/19 04:08 Dose: 100 mls/hr eMAR Start Stop Document 02/21/19 04:08 OLIVD (Rec: 02/21/19 04:08 OLIVD [facility] [id number]) Intravenous Solution Start Date 02/21/19 Start Time 04:08 End Date 02/21/19 End time 05:08 Total Infusion Time 60 Lactated Ringer's (Lactated Ringer's) 1,000 mls @ 150 mls/hr IV .Q6H40M SHANNAN Last Admin: 02/21/19 18:19 Dose: 150 mls/hr eMAR Start Stop Document 02/21/19 18:19 GG (Rec: 02/21/19 18:19 [facility] [id number]) Intravenous Solution Start Date 02/21/19 Start Time 18:19 Lisinopril (Zestril) 5 mg PO DAILY SHANNAN Lorazepam (Ativan) 2 mg IVP STAT STA; Protocol Stop: 02/20/19 20:35 Last Admin: 02/20/19 20:49 Dose: 2 mg IVP Administration Document 02/20/19 20:49 EB (Rec: 02/20/19 20:49 [id number] Charges for Administration # of IVP Administrations 1 Lorazepam (Ativan) 2 mg IVP Q2H PRN; Protocol PRN Reason: Anxiety Last Admin: 02/21/19 09:23 Dose: 2 mg IVP Administration Document 02/21/19 09:23 [facility] (Rec: 02/21/19 09:23 [facility] [id number]) Charges for Administration # of IVP Administrations 1 Behavioural Document 02/21/19 09:23 GG (Rec: 02/21/19 09:23 [id number] Behavior Behavior Comment CIWA 7 Re-Assess: Reassess Psych Meds Document 02/21/19 09:53 GG (Rec: 02/21/19 12:00 [id number] Reassess Psych Med Ineffective-LIP notifed Lorazepam (Ativan) 1 mg IVP Q6H SHANNAN; Protocol Last Admin: 02/20/19 20:49 Dose: Not Given Non-Admin Reason: DUPLICATE ORDER IVP Administration Document 02/20/19 20:49 EB (Rec: 02/20/19 20:49 EB [id number]) Charges for Administration # of IVP Administrations 1 Lorazepam (Ativan) 1 mg IVP Q6 SHANNAN; Protocol Last Admin: 02/22/19 05:50 Dose: 1 mg IVP Administration Document 02/22/19 05:50 OWUSR (Rec: 02/22/19 05:50 OWUSR [id number]) Charges for Administration # of IVP Administrations 1 Behavioural Document 02/22/19 05:50 OWUSR (Rec: 02/22/19 05:50 OWUSR [id number]) Maintenance Maintenance Dose Yes Nonmedicinal Nonmedicinal Interventions Redirect Behavior Behavior for Medication: Anxiety Morphine Sulfate (Morphine) 4 mg IVP STAT STA Stop: 02/20/19 14:43 Last Admin: 02/20/19 15:31 Dose: 4 mg MAR Pain Assessment Document 02/20/19 15:31 CD (Rec: 02/20/19 15:35 CD [facility] [id number]) Pain Reassessment Is this a pain reassessment? No Sleep Is patient sleeping during reassessment? No Presence of Pain Presence of Pain Yes Pain Scale Used Protocol: [facility] Scale Used Numeric Location Upper or Lower Lower Pain Location Body Site Back Description Description Intermittent Intensity of Pain at present 8 Pain Behavior Moaning Irritability Aggravating Factors Changing Position IVP Administration Document 02/20/19 15:31 CD (Rec: 02/20/19 15:35 CD [facility] [id number]) Charges for Administration # of IVP Administrations 1 Morphine Sulfate (Morphine) 4 mg IVP STAT STA Stop: 02/20/19 18:08 Last Admin: 02/20/19 18:23 Dose: 4 mg MAR Pain Assessment Document 02/20/19 18:23 CD (Rec: 02/20/19 18:24 CD [facility] [id number]) Pain Reassessment Is this a pain reassessment? No Sleep Is patient sleeping during reassessment? No Presence of Pain Presence of Pain Yes Pain Scale Used Protocol: PSCALES Pain Scale Used Numeric Location Left, Right or Bilateral Left Upper or Lower Lower Pain Location Body Site Back Description Description Intermittent Intensity of Pain at present 7 Pain Behavior Moaning Aggravating Factors Changing Position Alleviating Factors/Management Inactivity Techniques IVP Administration Document 02/20/19 18:23 CD (Rec: 02/20/19 18:24 CD [facility] [id number]) Charges for Administration # of IVP Administrations 1 Multivitamins/Minerals (Therapeutic-M Tab) 1 tab PO 0800 [facility] Last Admin: 02/22/19 08:09 Dose: 1 tab Nicotine (Nicoderm Cq) 1 patch TD DAILY [facility] Last Admin: 02/22/19 09:41 Dose: 1 patch MAR Transdermal Patch Site Document 02/22/19 09:41 SG (Rec: 02/22/19 09:41 SG [facility] [id number]) Transdermal Patch Site Transdermal Patch Site Right Shoulder Ondansetron HCl (Zofran Inj) 4 mg IVP STAT STA Stop: 02/20/19 15:41 Last Admin: 02/20/19 15:44 Dose: 4 mg IVP Administration Document 02/20/19 15:44 CD (Rec: 02/20/19 15:44 CD [facility] [id number]) Charges for Administration # of IVP Administrations 1 Ondansetron HCl (Zofran Inj) 4 mg IVP STAT STA Stop: 02/20/19 18:08 Last Admin: 02/20/19 18:23 Dose: 4 mg IVP Administration Document 02/20/19 18:23 CD (Rec: 02/20/19 18:23 CD [facility] [id number]) Charges for Administration # of IVP Administrations 1 Ondansetron HCl (Zofran Inj) 4 mg IVP Q6H [facility] Last Admin: 02/22/19 09:41 Dose: 4 mg IVP Administration Document 02/22/19 09:41 SG (Rec: 02/22/19 09:41 SG [facility] [id number]) Charges for Administration # of IVP Administrations 1 Pantoprazole Sodium (Protonix Inj) 40 mg IVP STAT STA Stop: 02/20/19 18:08 Last Admin: 02/20/19 18:23 Dose: 40 mg IVP Administration Document 02/20/19 18:23 CD (Rec: 02/20/19 18:23 CD [facility] [id number]) Charges for Administration # of IVP Administrations 1 Pantoprazole Sodium (Protonix Inj) 40 mg IVP DAILY [facility] Last Admin: 02/21/19 09:24 Dose: 40 mg IVP Administration Document 02/21/19 09:24 GG (Rec: 02/21/19 09:24 GGM [id number]) Charges for Administration # of IVP Administrations 1 Pantoprazole Sodium (Protonix Inj) 40 mg IVP BID [facility] Last Admin: 02/22/19 09:37 Dose: 40 mg IVP Administration Document 02/22/19 09:37 SG (Rec: 02/22/19 09:39 SG [facility] [id number]) Charges for Administration # of IVP Administrations 1 Pantoprazole Sodium (Protonix Ec Tab) 40 mg PO BID SHANNAN Thiamine HCl (Vitamin B1 Tab) 100 mg PO DAILY [facility] Last Admin: 02/22/19 09:37 Dose: 100 mg <Sean Mayes - Last Filed: 02/25/19 12:06> - Scribe Statement The provider has reviewed the documentation as recorded by the Hanyibe Brittaney Francois Provider Scribe Attestation: All medical record entries made by the Scribe were at my direction and personally dictated by me. I have reviewed the chart and agree that the record accurately reflects my personal performance of the history, physical exam, medical decision making, and the department course for this patient. I have also personally directed, reviewed, and agree with the discharge instructions and disposition. <Kelsi Pollard - Last Filed: 02/20/19 20:17> - PA / THERAPEUTIC DIETITIAN / Resident Statement / has reviewed & agrees with the documentation as recorded. <Sean Mayes - Last Filed: 02/25/19 12:06> Disposition/Present on Arrival - Present on Arrival Any Indicators Present on Arrival: No History of DVT/PE: No History of Uncontrolled Diabetes: No Urinary Catheter: No History of Decub. Ulcer: No History Surgical Site Infection Following: None - Disposition Have Diagnosis and Disposition been Completed?: Yes Disposition Time: 18:15 Patient Plan: Observation <Kelsi Pollard - Last Filed: 02/20/19 20:17> <Sean Mayes - Last Filed: 02/25/19 12:06> - Disposition Diagnosis: Intractable abdominal pain, Intractable back pain, Hypomagnesemia, H ypertension, Tachycardia Disposition: HOSPITALIZED Condition: FAIR
[2019-02-20 15:33] LABS: BASO # 0.05 K/mm3 (0.0-2.0); BASO % 0.5 % (0.0-3.0); HEMOGLOBIN 15.2 g/dL (14.0-18.0); LYMPH # 2.5 (1.2-3.4); LYMPH % 25.4 % (22.0-35.0); MEAN CORPUSCULAR HEMOGLOBIN 30.9 pg (25.0-35.0); MEAN CORPUSCULAR HGB CONC 34.3 g/dl (31.0-37.0); MEAN PLATELET VOLUME 9.3 fl (7.0-11.0); MONO # 0.5 (0.1-0.6); MONO % 5.6 % (1.0-6.0); RBC 4.92 10^6/uL (3.5-6.1); RED CELL DISTRIBUTION WIDTH 12.4 % (11.5-14.5); WHITE BLOOD COUNT 9.7 10^3/uL (4.5-11.0)
[2019-02-20 15:40] LABS: ALB/GLOB RATIO 1.3 (1.1-1.8); ALBUMIN 4.6 g/dL (3.0-4.8); ALT/SGPT 75 U/L (7-56); AST/SGOT 61 U/L (17-59); BLOOD UREA NITROGEN 15 mg/dL (7-21); CALCIUM 9.5 mg/dL (8.4-10.5); GFR NON-AFRICAN AMERICAN > 60; LIPASE 77 U/L (23-300)
[2019-02-20 15:47] LABS: TROPONIN I < 0.01 ng/mL
[2019-02-20 15:49] LABS: URINE BILIRUBIN SMALL (NEGATIVE); URINE BLOOD NEGATIVE (NEGATIVE); URINE GLUCOSE (UA) NEGATIVE (NEGATIVE); URINE LEUKOCYTE ESTERASE NEGATIVE Leu/uL (NEGATIVE); URINE PROTEIN 30 mg/dL (<30 mg/dL); URINE UROBILINOGEN 0.2 E.U./dL (<1 E.U./dL)
[2019-02-20 15:52] LABS: URINE APPEARANCE SL CLOUDY (CLEAR); URINE COLOR YELLOW (YELLOW)
[2019-02-20 16:23] LABS: BARBITURATES, UR NEGATIVE (NEGATIVE); BENZODIAZEPINES, UR NEGATIVE (NEGATIVE); OPIATES, UR NEGATIVE (NEGATIVE); PHENCYCLIDINE, UR NEGATIVE (NEGATIVE)
--- NOTE | 2019-02-20 16:31 | RAD ---
Date of service: 02/20/2019 HISTORY: abd pain/back pain COMPARISON: Chest radiographs 02/27/2018. TECHNIQUE: 1 view obtained. FINDINGS: LUNGS: No active pulmonary disease. PLEURA: No significant pleural effusion identified, no pneumothorax apparent. CARDIOVASCULAR: No aortic atherosclerotic calcification present. Normal cardiac size. No pulmonary vascular congestion. OSSEOUS STRUCTURES: No significant abnormalities. VISUALIZED UPPER ABDOMEN: Normal. OTHER FINDINGS: None. IMPRESSION: No interval acute cardiopulmonary disease appreciated.
[2019-02-20 16:33] LABS: URINE BACTERIA FEW /hpf
--- NOTE | 2019-02-20 17:49 | CT ---
PROCEDURE: CT Angiography Chest, Abdomen and Pelvis with and without intravenous contrast HISTORY: Abdominal and back pain. COMPARISON: Comparison made with CTA of the chest dated 02/27/2018 TECHNIQUE: Contiguous axial images of the chest, abdomen and pelvis were obtained in the phase of aortic enhancement. A noncontrast enhanced CT of the chest was also obtained to evaluate for possible intramural thrombus. Coronal and sagittal reformats were generated. IV dose administered: 150 cc Omnipaque 350 contrast material. Radiation dose: Total exam DLP = 1348.73 mGy-cm. This CT exam was performed using one or more of the following dose reduction techniques: Automated exposure control, adjustment of the mA and/or kV according to patient size, and/or use of iterative reconstruction technique. FINDINGS: CT ANGIOGRAPHY OF THE CHEST WITH & WITHOUT CONTRAST: AORTA (CHEST AND ABDOMEN): The thoracic and abdominal aorta are unremarkable, without aneurysm, dissection or rupture. No intramural thrombus identified in the thoracic aorta on the non-contrast CT scan of the chest.. The ascending thoracic aorta measures approximately 3.4 cm and descending thoracic aorta measures approximately 2.0 cm. The celiac axis, superior mesenteric artery, inferior mesenteric artery and the renal arteries are widely patent. The pelvic arteries are unremarkable. Pulmonary trunk measures approximate 3.1 cm. No evidence of acute central pulmonary embolus LUNGS: No acute consolidation. Small bleb again seen adjacent to the right parasagittal upper mediastinum. There may also be a tiny left anteriorly located in the right upper lobe. MEDIASTINUM: Heart size within range of normal. No significant pericardial effusion. Several small nonspecific mediastinal lymph nodes are present. No significant hilar adenopathy. Trachea midline and patent with no large central endoluminal lesions. There is a small hiatal hernia. LYMPH NODES: As above. PLEURA: Unremarkable. No pneumothorax. No pleural fluid. BONES: Unremarkable. OTHER FINDINGS: None. CT ANGIOGRAPHY OF THE ABDOMEN AND PELVIS WITH CONTRAST: LIVER: Liver is enlarged measuring nearly 20 cm in CC dimension. Moderate to fairly significant diffuse fatty hepatic infiltration. Portal and splenic veins are opacified. GALLBLADDER AND BILE DUCTS: Gallbladder physiologically distended. No evidence of intraluminal gallbladder calculi. PANCREAS: Pancreas appears unremarkable without masses collections or calcifications. SPLEEN: Spleen exhibits normal size and attenuation pattern without mass collection calcification. ADRENALS: There are no adrenal lesions seen. KIDNEYS AND URETERS: Kidneys demonstrate relatively symmetric nephrograms. No evidence of nephrolithiasis or hydronephrosis. VASCULATURE: Unremarkable. No aortic aneurysm. Mild aortic atherosclerotic calcification or mural plaque present. STOMACH AND BOWEL: Evaluation of the bowel is limited due to the lack of oral contrast material. Stomach is incompletely distended with slight thick-walled appearance. Visualized loops of small bowel exhibit normal contour caliber. No evidence mechanical small bowel obstruction. APPENDIX: Normal appendix. PERITONEUM: Unremarkable. No free fluid. No free air. There is a small fat containing umbilical hernia LYMPH NODES: Unremarkable. No enlarged lymph nodes. BLADDER: Urinary bladder incompletely distended with slight thick-walled appearance. Muscular hypertrophy may contribute however correlation with urinalysis to exclude cystitis. REPRODUCTIVE: Small prostatic calcification present. BONES: No acute fracture. OTHER FINDINGS: None. IMPRESSION: No evidence of aortic aneurysm, rupture or dissection. No evidence to suggest acute central pulmonary embolus Hepatomegaly with significant fatty hepatic infiltration. Small of bleb medial aspect right upper lung field.
[2019-02-20] MEDS ORDERED: Multivitamin (MVI) 10 ML, Thiamine 100 MG, Folic Acid 1 MG in Sodium Chloride 0.9% 1,00... IV ONE (18:21)
[2019-02-20] MEDS ORDERED: Magnesium Sulfate 2 gm/50 ml 2 GM/50 ML BAG IVPB ONE (18:39)
--- NOTE | 2019-02-20 19:28 | CP.PCM.HP ---
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 Patient reported Abd pain is worse with eating, sharp in nature, w/ associated. Reports BM within last 24 Hours, pain is intermittent in nature. Abd pain is located in the RLQ w/ radiation into the back, LLQ and LUQ. He states that he came into the ER because the pain has been significantly worse in the past 10 days. Of note patient reports spasm of upper extremity. Upon ROS denies any fevers, chills, chest pain, sob, urinary discomfort, numbness/ tingling. PMD: Unknown PMH: Denies HomeRX: Denies FamHx: Diabetes in paternal and maternal side of family ALL: NKDA PSH: Denies Social - 2ppd x 19 years active smokder; EtOH - 2pints Q weekly; Denies Illicit drug use Present on Admission - Present on Admission Any Indicators Present on Admission: No Review of Systems - Review of Systems All systems: reviewed and no additional remarkable complaints except Review of Systems: as per HPI Past Patient History - Infectious Disease Hx of Infectious Diseases: None - Tetanus Immunizations Tetanus Immunization: Unknown - Past Social History Smoking Status: Heavy Smoker > 10 Cigarettes Daily - PSYCHIATRIC Hx Depression: No Hx Emotional Abuse: No Hx Physical Abuse: No Hx Substance Use: No - SURGICAL HISTORY Hx Surgeries: No - ANESTHESIA Hx Anesthesia: No Hx Anesthesia Reactions: No Hx Malignant Hyperthermia: No Meds Allergies/Adverse Reactions: Allergies Allergy/AdvReac Type Severity Reaction Status Date / Time No Known Allergies Allergy Verified 02/20/19 14:02 Physical Exam - Constitutional Additional comments: anxious - Head Exam Head Exam: ATRAUMATIC, NORMOCEPHALIC - Eye Exam Eye Exam: EOMI, PERRL - Respiratory Exam Respiratory Exam: Clear to Auscultation Bilateral, NORMAL BREATHING PATTERN - Cardiovascular Exam Cardiovascular Exam: REGULAR RHYTHM, RRR. absent: Systolic Murmur - GI/Abdominal Exam GI & Abdominal Exam: Normal Bowel Sounds, Soft, Tenderness (RUQ/RLQ) - Extremities Exam Extremities exam: Positive for: normal capillary refill, pedal pulses present. Negative for: pedal edema - Back Exam Back exam: absent: CVA tenderness (L), CVA tenderness (R) - Neurological Exam Neurological exam: Alert, Oriented x3 Additional comments: tremulous - Psychiatric Exam Psychiatric exam: Anxious - Skin Skin Exam: Dry, Intact, Normal Color, Warm Results - Vital Signs Recent Vital Signs: Last Vital Signs Temp 98.4 F 02/20/19 17:32 Pulse 93 H 02/20/19 17:32 Resp 17 02/20/19 17:32 BP 170/97 H 02/20/19 17:32 Pulse Ox 95 02/20/19 17:32 - Labs Result Diagrams: 02/20/19 15:10 02/20/19 15:10 Labs: Laboratory Results - last 24 hr 02/20/19 02/20/19 02/20/19 15:10 15:10 15:10 WBC 9.7 RBC 4.92 Hgb 15.2 Hct 44.3 MCV 90.0 MCH 30.9 MCHC 34.3 RDW 12.4 Plt Count 259 MPV 9.3 Neut % (Auto) 68.5 H Lymph % (Auto) 25.4 [place] % (Auto) 5.6 Eos % (Auto) 0.0 L Baso % (Auto) 0.5 Lymph # (Auto) 2.5 [place] # (Auto) 0.5 Eos # (Auto) 0.0 Baso # (Auto) 0.05 Absolute Neuts (auto) 6.64 H Sodium 136 Potassium 3.5 L Chloride 100 Carbon Dioxide 23 Anion Gap 17 BUN 15 Creatinine 0.7 L Est GFR ( Amer) > 60 Est GFR (Non-Af Amer) > 60 Random Glucose 89 Calcium 9.5 Magnesium 1.2 L Total Bilirubin 0.8 AST 61 H D ALT 75 H Alkaline Phosphatase 90 Lactate Dehydrogenase 488 Total Creatine Kinase 179 Troponin I < 0.01 Total Protein 8.1 Albumin 4.6 Globulin 3.5 Albumin/Globulin Ratio 1.3 Lipase 77 Urine Color Urine Appearance Urine pH Ur Specific [place] Urine Protein Urine Glucose (UA) Urine Ketones Urine Blood Urine Nitrate Urine Bilirubin Urine Urobilinogen Ur Leukocyte Esterase Urine RBC Urine WBC Ur Epithelial Cells Urine Bacteria Urine Opiates Screen Urine Methadone Screen Ur Barbiturates Screen Ur Phencyclidine Scrn Ur Amphetamines Screen U Benzodiazepines Scrn U Oth Cocaine Metabols U Cannabinoids Screen Alcohol, Quantitative < 10 02/20/19 02/20/19 15:40 15:40 WBC RBC Hgb Hct MCV MCH MCHC RDW Plt Count MPV Neut % (Auto) Lymph % (Auto) [place] % (Auto) Eos % (Auto) Baso % (Auto) Lymph # (Auto) [place] # (Auto) Eos # (Auto) Baso # (Auto) Absolute Neuts (auto) Sodium Potassium Chloride Carbon Dioxide Anion Gap BUN Creatinine Est GFR ( Amer) Est GFR (Non-Af Amer) Random Glucose Calcium Magnesium Total Bilirubin AST ALT Alkaline Phosphatase Lactate Dehydrogenase Total Creatine Kinase Troponin I Total Protein Albumin Globulin Albumin/Globulin Ratio Lipase Urine Color Yellow Urine Appearance Sl cloudy Urine pH 6.0 Ur Specific [place] >= 1.030 Urine Protein 30 H Urine Glucose (UA) Negative Urine Ketones >=80 Urine Blood Negative Urine Nitrate Negative Urine Bilirubin Small H Urine Urobilinogen 0.2 Ur Leukocyte Esterase Negative Urine RBC None Urine WBC 2 - 5 Ur Epithelial Cells 4 - 5 Urine Bacteria Few Urine Opiates Screen Negative Urine Methadone Screen Negative Ur Barbiturates Screen Negative Ur Phencyclidine Scrn Negative Ur Amphetamines Screen Negative U Benzodiazepines Scrn Negative U Oth Cocaine Metabols Negative U Cannabinoids Screen Negative Alcohol, Quantitative Assessment & Plan - Assessment and Plan (Free Text) Assessment: Pt. is a 43M w/ no significant PMH presenting on 02/20 for abdominal pain / back pain Plan: ABD Pain/ Back Pain Presentation concerning for AAA/ Dissection - CTA Abd negative for abd aortic dissection Will keep NPO for now; IVF - LR 100cc/hr Flexeril PRN Zofran PRN Bentyl PRN Follow up abd U/s - R/o Cholecystitis Surgery Following, Appreciate reccs Electrolyte Imbalance: Hypomag/ HypoK+ Symptomatic w/ spasm Will replete + Recheck Suspect EtOH Withdrawal Most recent drink - last Monday; Patient reports tremors at baseline; Hypertensive in ED w/ tremors/anxiety Banana bag in ED CIWA Ativan 1 Q6 [facility]AN[facility]/ 2 Q2 PRN Transaminitis Fatty liver on CT Hepatitis panel pending F/u abd US findings PPX: Protonix Heparin Patient was seen, examined, discussed w/ attending Dr. Caldera - Date & Time Date: 02/20/19 Time: 21:01 <Michele Caldera - Last Filed: 02/21/19 04:24> Results - Vital Signs Recent Vital Signs: Last Vital Signs Temp 97.6 F 02/20/19 19:26 Pulse 92 H 02/21/19 02:00 Resp 18 02/20/19 23:29 BP 151/77 H 02/21/19 02:14 Pulse Ox 96 02/20/19 22:49 - Labs Result Diagrams: 02/20/19 15:10 02/20/19 15:10 Labs: Laboratory Results - last 24 hr 02/20/19 02/20/19 02/20/19 15:10 15:10 15:10 WBC 9.7 RBC 4.92 Hgb 15.2 Hct 44.3 MCV 90.0 MCH 30.9 MCHC 34.3 RDW 12.4 Plt Count 259 MPV 9.3 Neut % (Auto) 68.5 H Lymph % (Auto) 25.4 [place] % (Auto) 5.6 Eos % (Auto) 0.0 L Baso % (Auto) 0.5 Lymph # (Auto) 2.5 [place] # (Auto) 0.5 Eos # (Auto) 0.0 Baso # (Auto) 0.05 Absolute Neuts (auto) 6.64 H Sodium 136 Potassium 3.5 L Chloride 100 Carbon Dioxide 23 Anion Gap 17 BUN 15 Creatinine 0.7 L Est GFR ( Amer) > 60 Est GFR (Non-Af Amer) > 60 Random Glucose 89 Calcium 9.5 Magnesium 1.2 L Total Bilirubin 0.8 AST 61 H D ALT 75 H Alkaline Phosphatase 90 Lactate Dehydrogenase 488 Total Creatine Kinase 179 Troponin I < 0.01 Total Protein 8.1 Albumin 4.6 Globulin 3.5 Albumin/Globulin Ratio 1.3 Lipase 77 Urine Color Urine Appearance Urine pH Ur Specific [place] Urine Protein Urine Glucose (UA) Urine Ketones Urine Blood Urine Nitrate Urine Bilirubin Urine Urobilinogen Ur Leukocyte Esterase Urine RBC Urine WBC Ur Epithelial Cells Urine Bacteria Urine Opiates Screen Urine Methadone Screen Ur Barbiturates Screen Ur Phencyclidine Scrn Ur Amphetamines Screen U Benzodiazepines Scrn U Oth Cocaine Metabols U Cannabinoids Screen Alcohol, Quantitative < 10 02/20/19 02/20/19 15:40 15:40 WBC RBC Hgb Hct MCV MCH MCHC RDW Plt Count MPV Neut % (Auto) Lymph % (Auto) [place] % (Auto) Eos % (Auto) Baso % (Auto) Lymph # (Auto) [place] # (Auto) Eos # (Auto) Baso # (Auto) Absolute Neuts (auto) Sodium Potassium Chloride Carbon Dioxide Anion Gap BUN Creatinine Est GFR ( Amer) Est GFR (Non-Af Amer) Random Glucose Calcium Magnesium Total Bilirubin AST ALT Alkaline Phosphatase Lactate Dehydrogenase Total Creatine Kinase Troponin I Total Protein Albumin Globulin Albumin/Globulin Ratio Lipase Urine Color Yellow Urine Appearance Sl cloudy Urine pH 6.0 Ur Specific [place] >= 1.030 Urine Protein 30 H Urine Glucose (UA) Negative Urine Ketones >=80 Urine Blood Negative Urine Nitrate Negative Urine Bilirubin Small H Urine Urobilinogen 0.2 Ur Leukocyte Esterase Negative Urine RBC None Urine WBC 2 - 5 Ur Epithelial Cells 4 - 5 Urine Bacteria Few Urine Opiates Screen Negative Urine Methadone Screen Negative Ur Barbiturates Screen Negative Ur Phencyclidine Scrn Negative Ur Amphetamines Screen Negative U Benzodiazepines Scrn Negative U Oth Cocaine Metabols Negative U Cannabinoids Screen Negative Alcohol, Quantitative Attending/Attestation - Attestation I have personally seen and examined this patient.: Yes I have fully participated in the care of the patient.: Yes I have reviewed all pertinent clinical information: Yes Notes (Text): 02/21/19 04:21 Seen and examined. discussed with resident. A&P as above. Has prior ER visits for alcohol intoxication, will start CIWA. C/O nonspecific abdominal pain along with LBP for 2 month, but worsened and more frequent in last 3 days. Possibly musculoskeletal referred from back, but pt. is also tender in RLQ/RUQ and LLQ. Will obtain SX consult. Started on IVF, Bentyl prn and flexeril prn.
--- NOTE | 2019-02-20 20:28 | CARD ---
APPROVED REPORT Date of service: 02/20/2019 EKG Measurement Heart [id number] <Conclusion> Normal sinus rhythm Normal ECG
[2019-02-20] MEDS ORDERED: Lactated Ringer's 1,000 ML IV SCH (21:00)
--- NOTE | 2019-02-20 21:15 | CP.PCM.CON ---
History of Present Illness - History of Present Illness History of Present Illness: General Surgery Consult Re: abdominal pain HPI: 43M presenting with right abd / back pain. Pain has come and gone for the last 4 months and varies in its location. This is the worst episode and he has not sought help prior to this episode. He says the abd pain is worse with eating, sharp in nature. He has dizziness and nausea Last BM was normal. Currently, the pain is mainly located in the RLQ w/ radiation into the back, and R lower chest wall. Denies fever, chills, SOB, emesis, diarrhea, constipation, dysuria, hematuria, melena, hematochezia. PMH: Denies PSH: Denies FH: DM SH: 2ppd x 19 years active smoker. EtOH 2 pints/ weekly. No drug use. All: NKDA Meds: Denies Review of Systems - Review of Systems All systems: reviewed and no additional remarkable complaints except (as per HPI) Past Patient History - Infectious Disease Hx of Infectious Diseases: None - Tetanus Immunizations Tetanus Immunization: Unknown - Past Social History Smoking Status: Heavy Smoker > 10 Cigarettes Daily - PSYCHIATRIC Hx Depression: No Hx Emotional Abuse: No Hx Physical Abuse: No Hx Substance Use: No - SURGICAL HISTORY Hx Surgeries: No - ANESTHESIA Hx Anesthesia: No Hx Anesthesia Reactions: No Hx Malignant Hyperthermia: No Meds Allergies/Adverse Reactions: Allergies Allergy/AdvReac Type Severity Reaction Status Date / Time No Known Allergies Allergy Verified 02/20/19 14:02 - Medications Medications: Current Medications Cyclobenzaprine HCl (Flexeril) 10 mg PO TID PRN PRN Reason: Back pain/ Spasm Dicyclomine HCl (Bentyl) 10 mg PO QID PRN PRN Reason: Abd discomfort Heparin Sodium (Porcine) (Heparin) 5,000 units SC Q8 [facility]; Protocol Multivitamins/Vitamin C 10 ml/Thiamine HCl 100 mg/ Folic Acid 1 mg/ Sodium Chloride 1,011.2 mls @ 100 mls/hr IV .Q10H7M ONE Stop: 02/21/19 04:27 Last Admin: 02/20/19 18:57 Dose: 100 mls/hr Lactated Ringer's (Lactated Ringer's) 1,000 mls @ 100 mls/hr IV .Q10H [facility] Potassium Chloride (Potassium Chloride 10 Meq/100 Ml) 10 meq in 100 mls @ 100 mls/hr IVPB Q2H [facility] Stop: 02/21/19 03:59 Lorazepam (Ativan) 2 mg IVP Q2H PRN; Protocol PRN Reason: Anxiety Lorazepam (Ativan) 1 mg IVP Q6H [facility]; Protocol Last Admin: 02/20/19 20:49 Dose: Not Given Nicotine (Nicoderm Cq) 1 patch TD DAILY [facility] Ondansetron HCl (Zofran Inj) 4 mg IVP Q6H [facility] Last Admin: 02/20/19 20:36 Dose: Not Given Pantoprazole Sodium (Protonix Inj) 40 mg IVP DAILY [facility] Physical Exam - Constitutional Appears: Non-toxic, No Acute Distress - Head Exam Head Exam: ATRAUMATIC, NORMOCEPHALIC - Eye Exam Eye Exam: EOMI. absent: Scleral icterus - ENT Exam ENT Exam: Mucous Membranes Moist Additional comments: trachea midline - Neck Exam Neck exam: Positive for: Full Rom. Negative for: Tenderness - Respiratory Exam Respiratory Exam: Chest Wall Tenderness (on R), NORMAL BREATHING PATTERN. absent: Respiratory Distress - Cardiovascular Exam Cardiovascular Exam: Tachycardia. absent: JVD - GI/Abdominal Exam GI & Abdominal Exam: Guarding (voluntary), Soft, Tenderness (diffusely mild except for RUQ and R back/flank). absent: Distended, Firm, Rebound, Rigid - Rectal Exam Rectal Exam: Deferred - Extremities Exam Extremities exam: Positive for: pedal pulses present. Negative for: calf tenderness, pedal edema - Back Exam Back exam: absent: CVA tenderness (L), CVA tenderness (R) - Neurological Exam Neurological exam: Alert, Oriented x3 - Skin Skin Exam: Dry, Warm Results - Vital Signs Recent Vital Signs: Last Vital Signs Temp 97.6 F 02/20/19 19:26 Pulse 94 H 02/20/19 20:51 Resp 13 02/20/19 20:51 BP 155/95 H 02/20/19 20:51 Pulse Ox 100 02/20/19 20:51 - Labs Result Diagrams: 02/20/19 15:10 02/20/19 15:10 Labs: Laboratory Results - last 24 hr 02/20/19 02/20/19 02/20/19 15:10 15:10 15:10 WBC 9.7 RBC 4.92 Hgb 15.2 Hct 44.3 MCV 90.0 MCH 30.9 MCHC 34.3 RDW 12.4 Plt Count 259 MPV 9.3 Neut % (Auto) 68.5 H Lymph % (Auto) 25.4 [place] % (Auto) 5.6 Eos % (Auto) 0.0 L Baso % (Auto) 0.5 Lymph # (Auto) 2.5 [place] # (Auto) 0.5 Eos # (Auto) 0.0 Baso # (Auto) 0.05 Absolute Neuts (auto) 6.64 H Sodium 136 Potassium 3.5 L Chloride 100 Carbon Dioxide 23 Anion Gap 17 BUN 15 Creatinine 0.7 L Est GFR ( Amer) > 60 Est GFR (Non-Af Amer) > 60 Random Glucose 89 Calcium 9.5 Magnesium 1.2 L Total Bilirubin 0.8 AST 61 H D ALT 75 H Alkaline Phosphatase 90 Lactate Dehydrogenase 488 Total Creatine Kinase 179 Troponin I < 0.01 Total Protein 8.1 Albumin 4.6 Globulin 3.5 Albumin/Globulin Ratio 1.3 Lipase 77 Urine Color Urine Appearance Urine pH Ur Specific [place] Urine Protein Urine Glucose (UA) Urine Ketones Urine Blood Urine Nitrate Urine Bilirubin Urine Urobilinogen Ur Leukocyte Esterase Urine RBC Urine WBC Ur Epithelial Cells Urine Bacteria Urine Opiates Screen Urine Methadone Screen Ur Barbiturates Screen Ur Phencyclidine Scrn Ur Amphetamines Screen U Benzodiazepines Scrn U Oth Cocaine Metabols U Cannabinoids Screen Alcohol, Quantitative < 10 02/20/19 02/20/19 15:40 15:40 WBC RBC Hgb Hct MCV MCH MCHC RDW Plt Count MPV Neut % (Auto) Lymph % (Auto) [place] % (Auto) Eos % (Auto) Baso % (Auto) Lymph # (Auto) [place] # (Auto) Eos # (Auto) Baso # (Auto) Absolute Neuts (auto) Sodium Potassium Chloride Carbon Dioxide Anion Gap BUN Creatinine Est GFR ( Amer) Est GFR (Non-Af Amer) Random Glucose Calcium Magnesium Total Bilirubin AST ALT Alkaline Phosphatase Lactate Dehydrogenase Total Creatine Kinase Troponin I Total Protein Albumin Globulin Albumin/Globulin Ratio Lipase Urine Color Yellow Urine Appearance Sl cloudy Urine pH 6.0 Ur Specific [place] >= 1.030 Urine Protein 30 H Urine Glucose (UA) Negative Urine Ketones >=80 Urine Blood Negative Urine Nitrate Negative Urine Bilirubin Small H Urine Urobilinogen 0.2 Ur Leukocyte Esterase Negative Urine RBC None Urine WBC 2 - 5 Ur Epithelial Cells 4 - 5 Urine Bacteria Few Urine Opiates Screen Negative Urine Methadone Screen Negative Ur Barbiturates Screen Negative Ur Phencyclidine Scrn Negative Ur Amphetamines Screen Negative U Benzodiazepines Scrn Negative U Oth Cocaine Metabols Negative U Cannabinoids Screen Negative Alcohol, Quantitative - Imaging and Cardiology CT scan - abdomen Status: Image reviewed by me, Report reviewed by me Assessment & Plan - Assessment and Plan (Free Text) Assessment: 43M with persistant RUQ abdominal pain and back pain. Plan: Consider Hepatitis vs Cholecystitis/Biliary colic -NPO, IVF -F/U abdominal US, Hepatitis panel -HIDA scan tomorrow -Pain control -Zofran PRN D/W Dr. Marilee Carvalho PGY4
[2019-02-20 23:52] VITALS: BMI 26.9
[2019-02-21 06:26] LABS: BASO # 0.03 K/mm3 (0.0-2.0); BASO % 0.5 % (0.0-3.0); EOS # 0.1 (0.0-0.7); EOS % 1.1 % (1.5-5.0); HEMOGLOBIN 14.5 g/dL (14.0-18.0); LYMPH % 29.7 % (22.0-35.0); MEAN CORPUSCULAR HEMOGLOBIN 30.5 pg (25.0-35.0); MEAN CORPUSCULAR HGB CONC 33.5 g/dl (31.0-37.0); MEAN PLATELET VOLUME 9.4 fl (7.0-11.0); MONO # 0.5 (0.1-0.6); RBC 4.76 10^6/uL (3.5-6.1); RED CELL DISTRIBUTION WIDTH 12.5 % (11.5-14.5); WHITE BLOOD COUNT 6.6 10^3/uL (4.5-11.0)
[2019-02-21 07:35] LABS: ALB/GLOB RATIO 1.3 (1.1-1.8); ALT/SGPT 61 U/L (7-56); AST/SGOT 47 U/L (17-59); BLOOD UREA NITROGEN 12 mg/dL (7-21); CALCIUM 8.7 mg/dL (8.4-10.5); GFR NON-AFRICAN AMERICAN > 60
--- NOTE | 2019-02-21 08:53 | CP.PCM.PN ---
Subjective - Date & Time of Evaluation Date of Evaluation: 02/21/19 Time of Evaluation: 06:55 - Subjective Subjective: General Surgery Dr. Hunt Pt seen and examined @bedside. No acute events overnight. Pt reports pain now suprapubic w/ resolution of RUQ abd pain. denies F/C, N/V, D/C. NPO for HIDA. Objective - Vital Signs/Intake and Output Vital Signs (last 24 hours): Temp Pulse Resp BP Pulse Ox 97.6 F 109 H 18 151/77 H 96 02/20/19 19:26 02/21/19 06:00 02/20/19 23:29 02/21/19 02:14 02/20/19 22:49 - Medications Medications: Current Medications Cyclobenzaprine HCl (Flexeril) 10 mg PO TID PRN PRN Reason: Back pain/ Spasm Dicyclomine HCl (Bentyl) 10 mg PO QID PRN PRN Reason: Abd discomfort Heparin Sodium (Porcine) (Heparin) 5,000 units SC Q8 [facility]; Protocol Last Admin: 02/21/19 05:34 Dose: 5,000 units Lactated Ringer's (Lactated Ringer's) 1,000 mls @ 100 mls/hr IV .Q10H [facility] Lorazepam (Ativan) 2 mg IVP Q2H PRN; Protocol PRN Reason: Anxiety Last Admin: 02/21/19 02:36 Dose: 2 mg Lorazepam (Ativan) 1 mg IVP Q6 [facility]; Protocol Last Admin: 02/21/19 05:34 Dose: 1 mg Nicotine (Nicoderm Cq) 1 patch TD DAILY [facility] Ondansetron HCl (Zofran Inj) 4 mg IVP Q6H [facility] Last Admin: 02/21/19 07:29 Dose: 4 mg Pantoprazole Sodium (Protonix Inj) 40 mg IVP DAILY [facility] - Labs Labs: 02/21/19 06:00 02/21/19 06:00 - Constitutional Appears: Non-toxic, No Acute Distress - Head Exam Head Exam: NORMAL INSPECTION - Eye Exam Eye Exam: Normal appearance - ENT Exam ENT Exam: Mucous Membranes Moist - Respiratory Exam Respiratory Exam: NORMAL BREATHING PATTERN. absent: Accessory Muscle Use, Respiratory Distress - Cardiovascular Exam Cardiovascular Exam: absent: Bradycardia, Tachycardia - GI/Abdominal Exam GI & Abdominal Exam: Soft. absent: Distended, Firm, Guarding, Tenderness, Rebound - Extremities Exam Extremities Exam: Normal Inspection - Neurological Exam Neurological Exam: Alert, Awake, Oriented x3 - Psychiatric Exam Psychiatric exam: Normal Affect, Normal Mood - Skin Skin Exam: Dry, Intact, Normal Color, Warm Assessment and Plan - Assessment and Plan (Free Text) Assessment: 43 y/o M w/ migratory abd pain, now suprapubic Plan: - NPO, IVF - Abd US: some sludge, no GB wall edema, no stones, no PCCF, normal CBD - f/u Hepatitis panel - f/u HIDA - cont non-narcotic pain control - Zofran PRN Pt discussed w/ Dr. Marilee He PGY3
[2019-02-21 10:38] LABS: HEMOGLOBIN 14.8 g/dL (14.0-18.0)
[2019-02-21 12:09] LABS: HEPATITIS B SURFACE AG Negative (NEGATIVE)
[2019-02-21 12:15] LABS: HEPATITIS A IGM NEGATIVE (NEGATIVE); HEPATITIS B CORE AB NEGATIVE (NEGATIVE)
[2019-02-21 12:27] LABS: HEPATITIS C ANTIBODY NEGATIVE (NEGATIVE)
--- NOTE | 2019-02-21 13:40 | CP.PCM.PN ---
<Marino Zafar - Last Filed: 02/21/19 13:36> Subjective - Date & Time of Evaluation Date of Evaluation: 02/21/19 Time of Evaluation: 13:36 - Subjective Subjective: Marino Zafar, PGY-1, Internal Medicine Progress Note for Dr. Gonzalez Patient seen and evaluated at bedside. Patient had episode of hematemesis this morning. Patient had abdominal pain this morning at bedside which radiated to his back. He additionally endorsed no change in bowel movements and no bloody bowel movements. He has not traveled and has not had any change in diet recently. Last drink was last Monday. 12-point ROS was unremarkable except for what was mentioned above. Objective - Vital Signs/Intake and Output Vital Signs (last 24 hours): Temp Pulse Resp BP Pulse Ox 98.3 F 93 H 20 157/97 H 98 02/21/19 06:00 02/21/19 06:00 02/21/19 06:00 02/21/19 06:00 02/21/19 06:00 - Medications Medications: Current Medications Cyclobenzaprine HCl (Flexeril) 10 mg PO TID PRN PRN Reason: Back pain/ Spasm Dicyclomine HCl (Bentyl) 10 mg PO QID PRN PRN Reason: Abd discomfort Heparin Sodium (Porcine) (Heparin) 5,000 units SC Q8 [facility]; Protocol Last Admin: 02/21/19 13:12 Dose: 5,000 units Lactated Ringer's (Lactated Ringer's) 1,000 mls @ 100 mls/hr IV .Q10H [facility] Last Admin: 02/21/19 09:24 Dose: 100 mls/hr Lorazepam (Ativan) 2 mg IVP Q2H PRN; Protocol PRN Reason: Anxiety Last Admin: 02/21/19 09:23 Dose: 2 mg Lorazepam (Ativan) 1 mg IVP Q6 [facility]; Protocol Last Admin: 02/21/19 13:11 Dose: 1 mg Nicotine (Nicoderm Cq) 1 patch TD DAILY [facility] Last Admin: 02/21/19 09:24 Dose: 1 patch Ondansetron HCl (Zofran Inj) 4 mg IVP Q6H [facility] Last Admin: 02/21/19 13:17 Dose: 4 mg Pantoprazole Sodium (Protonix Inj) 40 mg IVP BID [facility] - Labs Labs: 02/21/19 10:30 02/21/19 06:00 - Constitutional Appears: Well, Non-toxic, No Acute Distress - Head Exam Head Exam: ATRAUMATIC, NORMAL INSPECTION, NORMOCEPHALIC - Eye Exam Eye Exam: EOMI Pupil Exam: PERRL - ENT Exam ENT Exam: Mucous Membranes Moist - Respiratory Exam Respiratory Exam: Clear to Ausculation Bilateral, NORMAL BREATHING PATTERN - Cardiovascular Exam Cardiovascular Exam: REGULAR RHYTHM, RRR, +S1, +S2. absent: Clicks, Gallop, Rubs - GI/Abdominal Exam GI & Abdominal Exam: Soft, Tenderness (right sided), Normal Bowel Sounds. absent: Distended, Firm, Guarding - Extremities Exam Extremities Exam: Full ROM, Normal Capillary Refill, Normal Inspection - Neurological Exam Neurological Exam: Alert, Awake, CN II-XII Intact, Oriented x3 - Psychiatric Exam Psychiatric exam: Normal Affect, Normal Mood - Skin Skin Exam: Dry, Intact, Normal Color Assessment and Plan - Assessment and Plan (Free Text) Assessment: 43 year old male with no significant past medical history presented for abdominal pain radiating to the back likely 2/2 to peptic ulcer disease vs. gastritis. Plan: Abdominal pain radiating to back complicated with hemoptysis 2/2 to possible gastritis vs. PUD -CTA 02/20: no evidence of aortic aneurysm, rupture, dissection. no PE. has hepatomegaly with significant fatty hepatic infiltration, small bleb of medial aspect right upper lung field -Abdominal ultrasound 02/21: sludge, no gallbladder wall edema, no stones, normal CBD -Hepatitis panel unremarkable -LFTs trending down -Lipase: 77 -Will follow up H and H Q4 status post hematemesis. Patient is currently hemodynamically stable. -Increased protonix to 40 mg IV BID -Continue with bentyl 10 mg QID PRN -Continue with zofran 4mg Q6PRN for nausea -Dr. Sawyer, GI, consulted for further evaluation Alcohol withdrawal -CIWA protocol initiated -Continue ativan 1 mg Q6 -Continue ativan 2 mg Q2PRN -Continue zofran 4 mg Q6PRN for nausea -Start MVI, thiamine, and folic acid Tobacco abuse -Nicotine patch -Counseled patient regarding tobacco abuse GI prophylaxis: protonix 40 BID DVT prophylaxis: heparin 5000 Q8 Patient plan discussed with Dr. Gonzalez <Haseeb Gonzalez - Last Filed: 02/23/19 12:01> Objective - Vital Signs/Intake and Output Vital Signs (last 24 hours): Temp Pulse Resp BP Pulse Ox 98.8 F 124 H 20 164/101 H 97 02/22/19 06:00 02/22/19 10:00 02/22/19 06:00 02/22/19 06:00 02/22/19 06:00 - Labs Labs: 02/22/19 06:10 02/22/19 06:10 PT 11.9 SECONDS (9.4-12.5) 02/22/19 06:10 INR 1.05 02/22/19 06:10 Attending/Attestation - Attestation I have personally seen and examined this patient.: Yes I have fully participated in the care of the patient.: Yes I have reviewed all pertinent clinical information, including history, physical exam and plan: Yes Notes (Text): 02/23/19 12:00 Medical record note made by the resident after discussion with my direction and input after the patient was personally seen and examined by me. I have reviewed the chart and agree that the record accurately reflects by personal performance of the history, physical exam, data review, and medical decision-making, in the course for the patient. I have also personally directed the plan of care.
--- NOTE | 2019-02-21 16:07 | CP.PCM.CON ---
<Sid Escalera - Last Filed: 02/21/19 16:01> History of Present Illness - History of Present Illness History of Present Illness: PGY6 GI Fellow Consult Note Patient is a 43yo male with no significant past medical history who presented to the ED with abdominal pain. The patient states that pain began suddenly two days prior to admission while relaxing at home. Pain was severe at onset, located in the epigastric area with radiation to the back and was worsened by any oral intake. He did not try to take any medications to alleviate symptoms and denies any recent prescription or OTC medication use. He does admit to heavy EtOH intake this past Monday (5 days prior to admission) with multiple "half pints of vodka". He denies any other heavy EtoH or illicit drug use in the recent past. While he denies chronic abdominal pain to me, other notes in the EMR mention that patient has had this pain intermittently for months. Following admission, he became nauseated and vomited 3 times. Per nursing, he spent most of the morning retching and vomiting and on his most recent, fourth episode of vomiting, he expelled approximately 1/2 cup of bright red hematemesis. Patient denies any history of chronic liver disease, PUD or prior hematemesis. Denies any prior endoscopic evaluation. No recent weight loss, change in bowel habits, melena or hematochezia. 12 system ROS performed and negative except where stated PMHx: Discussed with patient and he denies prior medical history PSHx: Discussed with patient and he denies prior surgical history FHx: Mother - unknown malignancy Social: 1-2ppd smoker for 20+ years; +EtOH use, denies illicit drug use Endo: No prior evaluations Past Patient History - Infectious Disease Hx of Infectious Diseases: None - Tetanus Immunizations Tetanus Immunization: Unknown - Past Social History Smoking Status: Current Some Days Smoker - MUSCULOSKELETAL/RHEUMATOLOGICAL Hx Falls: No - PSYCHIATRIC Hx Substance Use: No Other/Comment: etoh, smoking - SURGICAL HISTORY Hx Surgeries: No - ANESTHESIA Hx Anesthesia: No Hx Anesthesia Reactions: No Hx Malignant Hyperthermia: No Meds Allergies/Adverse Reactions: Allergies Allergy/AdvReac Type Severity Reaction Status Date / Time No Known Allergies Allergy Verified 02/20/19 14:02 - Medications Medications: Current Medications Dicyclomine HCl (Bentyl) 10 mg PO QID PRN PRN Reason: Abd discomfort Folic Acid (Folic Acid) 1 mg PO DAILY [facility] Heparin Sodium (Porcine) (Heparin) 5,000 units SC Q8 [facility]; Protocol Last Admin: 02/21/19 13:12 Dose: 5,000 units Lactated Ringer's (Lactated Ringer's) 1,000 mls @ 100 mls/hr IV .Q10H [facility] Last Admin: 02/21/19 09:24 Dose: 100 mls/hr Lorazepam (Ativan) 2 mg IVP Q2H PRN; Protocol PRN Reason: Anxiety Last Admin: 02/21/19 09:23 Dose: 2 mg Lorazepam (Ativan) 1 mg IVP Q6 [facility]; Protocol Last Admin: 02/21/19 13:11 Dose: 1 mg Multivitamins/Minerals (Therapeutic-M Tab) 1 tab PO 0800 [facility] Nicotine (Nicoderm Cq) 1 patch TD DAILY [facility] Last Admin: 02/21/19 09:24 Dose: 1 patch Ondansetron HCl (Zofran Inj) 4 mg IVP Q6H [facility] Last Admin: 02/21/19 13:17 Dose: 4 mg Pantoprazole Sodium (Protonix Inj) 40 mg IVP BID [facility] Thiamine HCl (Vitamin B1 Tab) 100 mg PO DAILY [facility] Physical Exam - Constitutional Appears: Non-toxic, No Acute Distress - Eye Exam Eye Exam: EOMI, PERRL - ENT Exam ENT Exam: Mucous Membranes Moist - Respiratory Exam Respiratory Exam: Clear to Auscultation Bilateral. absent: Rales, Rhonchi, Wheezes - Cardiovascular Exam Cardiovascular Exam: RRR, +S1, +S2 - GI/Abdominal Exam GI & Abdominal Exam: Normal Bowel Sounds, Soft, Tenderness (epigastric). absent: Distended, Firm, Guarding, Organomegaly, Rigid - Extremities Exam Extremities exam: Positive for: normal inspection. Negative for: pedal edema - Neurological Exam Neurological exam: Alert, Oriented x3 - Psychiatric Exam Psychiatric exam: Normal Affect, Normal Mood - Skin Skin Exam: Dry, Warm Results - Vital Signs Recent Vital Signs: Last Vital Signs Temp 98.3 F 02/21/19 06:00 Pulse 93 H 02/21/19 06:00 Resp 20 02/21/19 06:00 BP 157/97 H 02/21/19 06:00 Pulse Ox 98 02/21/19 06:00 - Labs Result Diagrams: 02/21/19 10:30 02/21/19 06:00 Labs: Laboratory Results - last 24 hr 02/20/19 02/20/19 02/20/19 15:10 15:40 15:40 WBC RBC Hgb Hct MCV MCH MCHC RDW Plt Count MPV Neut % (Auto) Lymph % (Auto) Riley % (Auto) Eos % (Auto) Baso % (Auto) Lymph # (Auto) Riley # (Auto) Eos # (Auto) Baso # (Auto) Absolute Neuts (auto) Sodium Potassium Chloride Carbon Dioxide Anion Gap BUN Creatinine Est GFR ( Amer) Est GFR (Non-Af Amer) Random Glucose Calcium Phosphorus Magnesium Total Bilirubin AST ALT Alkaline Phosphatase Total Protein Albumin Globulin Albumin/Globulin Ratio Urine RBC None Urine WBC 2 - 5 Ur Epithelial Cells 4 - 5 Urine Bacteria Few Urine Opiates Screen Negative Urine Methadone Screen Negative Ur Barbiturates Screen Negative Ur Phencyclidine Scrn Negative Ur Amphetamines Screen Negative U Benzodiazepines Scrn Negative U Oth Cocaine Metabols Negative U Cannabinoids Screen Negative Hepatitis A IgM Ab Negative Hep Bs Antigen Negative Hep B Core IgM Ab Negative Hepatitis C Antibody Negative 02/21/19 02/21/19 02/21/19 06:00 06:00 10:30 WBC 6.6 D RBC 4.76 Hgb 14.5 14.8 Hct 43.3 43.2 MCV 91.0 MCH 30.5 MCHC 33.5 RDW 12.5 Plt Count 242 MPV 9.4 Neut % (Auto) 60.7 Lymph % (Auto) 29.7 Riley % (Auto) 8.0 H Eos % (Auto) 1.1 L Baso % (Auto) 0.5 Lymph # (Auto) 2.0 Riley # (Auto) 0.5 Eos # (Auto) 0.1 Baso # (Auto) 0.03 Absolute Neuts (auto) 4.01 Sodium 136 Potassium 3.7 Chloride 104 Carbon Dioxide 25 Anion Gap 11 BUN 12 Creatinine 0.7 L Est GFR ( Amer) > 60 Est GFR (Non-Af Amer) > 60 Random Glucose 79 Calcium 8.7 Phosphorus 3.5 Magnesium 1.9 Total Bilirubin 0.9 AST 47 ALT 61 H Alkaline Phosphatase 77 Total Protein 7.0 Albumin 4.0 Globulin 3.1 Albumin/Globulin Ratio 1.3 Urine RBC Urine WBC Ur Epithelial Cells Urine Bacteria Urine Opiates Screen Urine Methadone Screen Ur Barbiturates Screen Ur Phencyclidine Scrn Ur Amphetamines Screen U Benzodiazepines Scrn U Oth Cocaine Metabols U Cannabinoids Screen Hepatitis A IgM Ab Hep Bs Antigen Hep B Core IgM Ab Hepatitis C Antibody Assessment & Plan - Assessment and Plan (Free Text) Assessment: Patient is a 43yo male with no significant past medical history who presented to the ED with abdominal pain -Epigastric abdominal pain -Hematemesis, suspect Pinky-Hope tear -Binge drinking; EtOH abuse -EtOH withdrawal Plan: -CTA reviewed - enlarged, steatotic liver noted on imaging c/w EtOH abuse -Awaiting abdominal U/S -Continue with Pantoprazole 40mg IV BID -Zofran ordered -Can use Reglan PRN if again developed prolonged episodes of retching\\ -Increase IVF to 150cc/hr; lipase WNL but pain can be c/w pancreatitis - CT scan if symptoms do not improve -Liquid diet when tolerating PO -Ativan for EtOH withdrawal -Educated on tobacco and EtOH cessation - Date & Time Date: 02/21/19 Time: 15:30 <Jj Sawyer - Last Filed: 02/21/19 17:39> Meds - Medications Medications: Current Medications Dicyclomine HCl (Bentyl) 10 mg PO QID PRN PRN Reason: Abd discomfort Folic Acid (Folic Acid) 1 mg PO DAILY [facility] Heparin Sodium (Porcine) (Heparin) 5,000 units SC Q8 [facility]; Protocol Last Admin: 02/21/19 13:12 Dose: 5,000 units Lactated Ringer's (Lactated Ringer's) 1,000 mls @ 150 mls/hr IV .Q6H40M [facility] Lorazepam (Ativan) 2 mg IVP Q2H PRN; Protocol PRN Reason: Anxiety Last Admin: 02/21/19 09:23 Dose: 2 mg Lorazepam (Ativan) 1 mg IVP Q6 [facility]; Protocol Last Admin: 02/21/19 13:11 Dose: 1 mg Multivitamins/Minerals (Therapeutic-M Tab) 1 tab PO 0800 [facility] Nicotine (Nicoderm Cq) 1 patch TD DAILY [facility] Last Admin: 02/21/19 09:24 Dose: 1 patch Ondansetron HCl (Zofran Inj) 4 mg IVP Q6H [facility] Last Admin: 02/21/19 13:17 Dose: 4 mg Pantoprazole Sodium (Protonix Inj) 40 mg IVP BID [facility] Thiamine HCl (Vitamin B1 Tab) 100 mg PO DAILY [facility] Results - Vital Signs Recent Vital Signs: Last Vital Signs Temp 98.7 F 02/21/19 17:29 Pulse 107 H 02/21/19 17:29 Resp 19 02/21/19 17:29 BP 156/96 H 02/21/19 17:29 Pulse Ox 97 02/21/19 17:29 - Labs Result Diagrams: 02/21/19 10:30 02/21/19 06:00 Labs: Laboratory Results - last 24 hr 02/20/19 02/21/19 02/21/19 15:10 06:00 06:00 WBC 6.6 D RBC 4.76 Hgb 14.5 Hct 43.3 MCV 91.0 MCH 30.5 MCHC 33.5 RDW 12.5 Plt Count 242 MPV 9.4 Neut % (Auto) 60.7 Lymph % (Auto) 29.7 Riley % (Auto) 8.0 H Eos % (Auto) 1.1 L Baso % (Auto) 0.5 Lymph # (Auto) 2.0 Riley # (Auto) 0.5 Eos # (Auto) 0.1 Baso # (Auto) 0.03 Absolute Neuts (auto) 4.01 Sodium 136 Potassium 3.7 Chloride 104 Carbon Dioxide 25 Anion Gap 11 BUN 12 Creatinine 0.7 L Est GFR ( Amer) > 60 Est GFR (Non-Af Amer) > 60 Random Glucose 79 Calcium 8.7 Phosphorus 3.5 Magnesium 1.9 Total Bilirubin 0.9 AST 47 ALT 61 H Alkaline Phosphatase 77 Total Protein 7.0 Albumin 4.0 Globulin 3.1 Albumin/Globulin Ratio 1.3 Hepatitis A IgM Ab Negative Hep Bs Antigen Negative Hep B Core IgM Ab Negative Hepatitis C Antibody Negative 02/21/19 10:30 WBC RBC Hgb 14.8 Hct 43.2 MCV MCH MCHC RDW Plt Count MPV Neut % (Auto) Lymph % (Auto) Riley % (Auto) Eos % (Auto) Baso % (Auto) Lymph # (Auto) Riley # (Auto) Eos # (Auto) Baso # (Auto) Absolute Neuts (auto) Sodium Potassium Chloride Carbon Dioxide Anion Gap BUN Creatinine Est GFR ( Amer) Est GFR (Non-Af Amer) Random Glucose Calcium Phosphorus Magnesium Total Bilirubin AST ALT Alkaline Phosphatase Total Protein Albumin Globulin Albumin/Globulin Ratio Hepatitis A IgM Ab Hep Bs Antigen Hep B Core IgM Ab Hepatitis C Antibody Attending/Attestation - Attestation I have fully participated in the care of the patient.: Yes I have reviewed all pertinent clinical information: Yes Notes (Text): 02/21/19 17:36 ETOH abuse Abdominal pain Hematemesis in setting of recent ETOH use and retching - NPO - Continue with PPI therapy - H/H stable, continue to monitor - Anti-emetic therapy PRN - ETOH cessation counseling - Will continue to monitor patient clinical course, consider EGD if symptoms persist
[2019-02-21] MEDS ORDERED: Lactated Ringer's 1,000 ML IV SCH (16:08)
--- NOTE | 2019-02-21 16:31 | US ---
Date of service: 02/21/2019 HISTORY: r/o cholecystitis COMPARISON: None. TECHNIQUE: Sonographic evaluation of the abdomen. FINDINGS: LIVER: Measures 18.5 cm. Mildly enlarged. Diffusely increased echogenicity of the liver parenchyma. Consistent with fatty infiltration. Smooth contour. No mass. No biliary ductal dilatation. GALLBLADDER: Unremarkable. No gallstones. COMMON BILE DUCT: Measures 3 mm. No stones. No dilatation. PANCREAS: Limited visualization due to overlying bowel gas. RIGHT KIDNEY: Measures 11.1cm. Normal echogenicity. No calculus, mass, or hydronephrosis. LEFT KIDNEY: Measures 11.9cm. Normal echogenicity. No calculus, mass, or hydronephrosis. SPLEEN: Normal in size and contour. No mass. AORTA: No aneurysmal dilatation. IVC: Unremarkable. OTHER FINDINGS: None. IMPRESSION: Minimal hepatomegaly with fatty infiltration of the liver. Otherwise unremarkable examination.
[2019-02-21 17:30] VITALS: O2SAT 97
[2019-02-21 19:02] LABS: HEMOGLOBIN 14.1 g/dL (14.0-18.0)
[2019-02-21 22:04] LABS: HEMOGLOBIN 14.5 g/dL (14.0-18.0)
[2019-02-22 06:47] LABS: INR 1.05; PROTHROMBIN TIME 11.9 SECONDS (9.4-12.5)
[2019-02-22 06:50] LABS: BASO # 0.01 K/mm3 (0.0-2.0); BASO % 0.2 % (0.0-3.0); EOS % 0.7 % (1.5-5.0); HEMOGLOBIN 14.2 g/dL (14.0-18.0); LYMPH # 1.8 (1.2-3.4); LYMPH % 31.6 % (22.0-35.0); MEAN CELL VOLUME 90.8 fl (80.0-105.0); MEAN CORPUSCULAR HEMOGLOBIN 30.5 pg (25.0-35.0); MEAN CORPUSCULAR HGB CONC 33.6 g/dl (31.0-37.0); MEAN PLATELET VOLUME 9.4 fl (7.0-11.0); MONO # 0.5 (0.1-0.6); MONO % 8.7 % (1.0-6.0); RBC 4.65 10^6/uL (3.5-6.1); RED CELL DISTRIBUTION WIDTH 12.3 % (11.5-14.5); WHITE BLOOD COUNT 5.8 10^3/uL (4.5-11.0)
[2019-02-22 07:17] LABS: ALB/GLOB RATIO 1.2 (1.1-1.8); ALBUMIN 3.9 g/dL (3.0-4.8); ALT/SGPT 53 U/L (7-56); AST/SGOT 44 U/L (17-59); BLOOD UREA NITROGEN 7 mg/dL (7-21); CALCIUM 8.9 mg/dL (8.4-10.5); GFR NON-AFRICAN AMERICAN > 60
[2019-02-22] MEDS ORDERED: Multivitamin With Minerals Tab PO SCH (08:00)
[2019-02-22 08:26] VITALS: BP 164/101; RESP 20; TEMP 98.8
--- NOTE | 2019-02-22 09:00 | CP.PCM.PN ---
Subjective - Date & Time of Evaluation Date of Evaluation: 02/22/19 Time of Evaluation: 08:57 - Subjective Subjective: SURGERY NOTE FOR DR. BARNES 43M seen and examined at bedside. Patient continues to complain of lower abdominal pain. Admits to nausea overnight with one episode of blood tinged emesis. Denies fevers. Objective - Vital Signs/Intake and Output Vital Signs (last 24 hours): Temp Pulse Resp BP Pulse Ox 98.8 F 96 H 20 164/101 H 97 02/22/19 06:00 02/22/19 06:00 02/22/19 06:00 02/22/19 06:00 02/22/19 06:00 - Medications Medications: Current Medications Dicyclomine HCl (Bentyl) 10 mg PO QID PRN PRN Reason: Abd discomfort Folic Acid (Folic Acid) 1 mg PO DAILY [facility] Heparin Sodium (Porcine) (Heparin) 5,000 units SC Q8 [facility]; Protocol Last Admin: 02/21/19 13:12 Dose: 5,000 units Lactated Ringer's (Lactated Ringer's) 1,000 mls @ 150 mls/hr IV .Q6H40M [facility] Last Admin: 02/21/19 18:19 Dose: 150 mls/hr Lorazepam (Ativan) 2 mg IVP Q2H PRN; Protocol PRN Reason: Anxiety Last Admin: 02/21/19 09:23 Dose: 2 mg Lorazepam (Ativan) 1 mg IVP Q6 [facility]; Protocol Last Admin: 02/22/19 05:50 Dose: 1 mg Multivitamins/Minerals (Therapeutic-M Tab) 1 tab PO 0800 [facility] Last Admin: 02/22/19 08:09 Dose: 1 tab Nicotine (Nicoderm Cq) 1 patch TD DAILY [facility] Last Admin: 02/21/19 09:24 Dose: 1 patch Ondansetron HCl (Zofran Inj) 4 mg IVP Q6H [facility] Last Admin: 02/22/19 01:31 Dose: 4 mg Pantoprazole Sodium (Protonix Inj) 40 mg IVP BID [facility] Last Admin: 02/21/19 18:17 Dose: 40 mg Thiamine HCl (Vitamin B1 Tab) 100 mg PO DAILY [facility] - Labs Labs: 02/22/19 06:10 02/22/19 06:10 PT 11.9 SECONDS (9.4-12.5) 02/22/19 06:10 INR 1.05 02/22/19 06:10 - Constitutional Appears: Non-toxic, No Acute Distress - Eye Exam Eye Exam: EOMI, PERRL - Respiratory Exam Respiratory Exam: Clear to Ausculation Bilateral, NORMAL BREATHING PATTERN - Cardiovascular Exam Cardiovascular Exam: REGULAR RHYTHM, +S1, +S2 - GI/Abdominal Exam GI & Abdominal Exam: Soft, Tenderness. absent: Distended, Firm, Guarding, Rigid, Rebound - Neurological Exam Neurological Exam: Alert, Awake - Skin Skin Exam: Dry, Intact, Normal Color, Warm Assessment and Plan - Assessment and Plan (Free Text) Assessment: 43M with abdominal pain of unknown etiology Plan: - recommend alcohol detox - recommend upper and lower endoscopy Discussed with Dr. Marilee Martinez, PGY3
--- NOTE | 2019-02-22 09:53 | CP.PCM.PN ---
<SashageoffreyrenoSid - Last Filed: 02/22/19 12:16> Subjective - Date & Time of Evaluation Date of Evaluation: 02/22/19 Time of Evaluation: 07:45 - Subjective Subjective: PGY6 GI Fellow Progress Note Patient seen and examined bedside this morning. The patient remains a poor historian. Discussed case with daytime and overnight nursing staff. The patient DID NOT have any blood tinged emesis last night. No episodes overnight and ate breakfast today without any issue. 12 system ROS performed and negative except where stated Objective - Vital Signs/Intake and Output Vital Signs (last 24 hours): Temp Pulse Resp BP Pulse Ox 98.8 F 96 H 20 164/101 H 97 02/22/19 06:00 02/22/19 06:00 02/22/19 06:00 02/22/19 06:00 02/22/19 06:00 - Medications Medications: Current Medications Dicyclomine HCl (Bentyl) 10 mg PO QID PRN PRN Reason: Abd discomfort Folic Acid (Folic Acid) 1 mg PO DAILY [facility] Last Admin: 02/22/19 09:37 Dose: 1 mg Heparin Sodium (Porcine) (Heparin) 5,000 units SC Q8 [facility]; Protocol Last Admin: 02/21/19 13:12 Dose: 5,000 units Lactated Ringer's (Lactated Ringer's) 1,000 mls @ 150 mls/hr IV .Q6H40M [facility] Last Admin: 02/21/19 18:19 Dose: 150 mls/hr Lorazepam (Ativan) 2 mg IVP Q2H PRN; Protocol PRN Reason: Anxiety Last Admin: 02/21/19 09:23 Dose: 2 mg Lorazepam (Ativan) 1 mg IVP Q6 SHANNAN; Protocol Last Admin: 02/22/19 05:50 Dose: 1 mg Multivitamins/Minerals (Therapeutic-M Tab) 1 tab PO 0800 [facility] Last Admin: 02/22/19 08:09 Dose: 1 tab Nicotine (Nicoderm Cq) 1 patch TD DAILY [facility] Last Admin: 02/22/19 09:41 Dose: 1 patch Ondansetron HCl (Zofran Inj) 4 mg IVP Q6H [facility] Last Admin: 02/22/19 09:41 Dose: 4 mg Pantoprazole Sodium (Protonix Inj) 40 mg IVP BID [facility] Last Admin: 02/22/19 09:37 Dose: 40 mg Thiamine HCl (Vitamin B1 Tab) 100 mg PO DAILY [facility] Last Admin: 02/22/19 09:37 Dose: 100 mg - Labs Labs: 02/22/19 06:10 02/22/19 06:10 PT 11.9 SECONDS (9.4-12.5) 02/22/19 06:10 INR 1.05 02/22/19 06:10 - Constitutional Appears: No Acute Distress - Eye Exam Eye Exam: EOMI, PERRL - ENT Exam ENT Exam: Mucous Membranes Moist - Respiratory Exam Respiratory Exam: Clear to Ausculation Bilateral. absent: Rales, Rhonchi, Wheezes - Cardiovascular Exam Cardiovascular Exam: RRR, +S1, +S2 - GI/Abdominal Exam GI & Abdominal Exam: Soft, Normal Bowel Sounds. absent: Distended, Firm, Guarding, Rigid, Tenderness, Organomegaly - Extremities Exam Extremities Exam: Normal Inspection. absent: Pedal Edema - Back Exam Back Exam: tenderness (midline thoraco-lumbar) - Neurological Exam Neurological Exam: Alert, Awake, Oriented x3 Additional comments: tremulous - Psychiatric Exam Psychiatric exam: Normal Affect, Normal Mood - Skin Skin Exam: Dry, Warm Assessment and Plan - Assessment and Plan (Free Text) Assessment: Patient is a 43yo male with no significant past medical history who presented to the ED with abdominal pain -Epigastric abdominal pain -Hematemesis, suspect Pinky-Hope tear -Binge drinking; EtOH abuse -EtOH withdrawal Plan: -No episodes of hematemesis following one episode after multiple bouts of retching yesterday afternoon -The patient has had 6 H/H since admission; all counts stable -Continue Zofran with PRN Reglan if patient develops episodes of retching -Symptoms likely consistent with a Pinky-Hope tear -Pantoprazole 40mg PO QAM -IVF as ordered -Ativan for EtOH withdrawal -Diet as tolerated -OK for D/C when cleared by medical team -Educated on tobacco and EtOH cessation <Jj Sawyer - Last Filed: 02/22/19 13:21> Objective - Vital Signs/Intake and Output Vital Signs (last 24 hours): Temp Pulse Resp BP Pulse Ox 98.8 F 124 H 20 164/101 H 97 02/22/19 06:00 02/22/19 10:00 02/22/19 06:00 02/22/19 06:00 02/22/19 06:00 - Medications Medications: Current Medications Dicyclomine HCl (Bentyl) 10 mg PO QID PRN PRN Reason: Abd discomfort Folic Acid (Folic Acid) 1 mg PO DAILY [facility] Last Admin: 02/22/19 09:37 Dose: 1 mg Heparin Sodium (Porcine) (Heparin) 5,000 units SC Q8 [facility]; Protocol Last Admin: 02/21/19 13:12 Dose: 5,000 units Lactated Ringer's (Lactated Ringer's) 1,000 mls @ 150 mls/hr IV .Q6H40M [facility] Last Admin: 02/21/19 18:19 Dose: 150 mls/hr Lisinopril (Zestril) 5 mg PO DAILY [facility] Lorazepam (Ativan) 2 mg IVP Q2H PRN; Protocol PRN Reason: Anxiety Last Admin: 02/21/19 09:23 Dose: 2 mg Lorazepam (Ativan) 1 mg IVP Q6 [facility]; Protocol Last Admin: 02/22/19 05:50 Dose: 1 mg Multivitamins/Minerals (Therapeutic-M Tab) 1 tab PO 0800 [facility] Last Admin: 02/22/19 08:09 Dose: 1 tab Nicotine (Nicoderm Cq) 1 patch TD DAILY [facility] Last Admin: 02/22/19 09:41 Dose: 1 patch Ondansetron HCl (Zofran Inj) 4 mg IVP Q6H [facility] Last Admin: 02/22/19 09:41 Dose: 4 mg Pantoprazole Sodium (Protonix Ec Tab) 40 mg PO BID [facility] Thiamine HCl (Vitamin B1 Tab) 100 mg PO DAILY [facility] Last Admin: 02/22/19 09:37 Dose: 100 mg - Labs Labs: 02/22/19 06:10 02/22/19 06:10 PT 11.9 SECONDS (9.4-12.5) 02/22/19 06:10 INR 1.05 02/22/19 06:10 Attending/Attestation - Attestation I have personally seen and examined this patient.: Yes I have fully participated in the care of the patient.: Yes I have reviewed all pertinent clinical information, including history, physical exam and plan: Yes Notes (Text): 02/22/19 13:19 I have seen and examined patient with GI fellow. No acute events overnight, no further episodes of hematemesis noted. He reports ongoing dizziness and back pain. Denies abdominal pain, fever/chills. Tolerating PO liquids without difficulty. Abdominal pain ETOH abuse Vomiting, hematemesis - resolved - Advance diet as tolerated - H/H stable, continue to monitor - ETOH cessation counseling - Continue with PPI therapy - Anti-emetic therapy as needed - No further planned GI intervention, will sign off case. Please reconsult as necessary, thank you.
[2019-02-22 11:17] VITALS: PULSE 124
--- NOTE | 2019-02-22 16:39 | CP.PCM.DIS ---
<CamilaruddyMarino - Last Filed: 02/22/19 16:41> Provider - Provider Date of Admission: 02/20/19 18:22 Attending physician: Haseeb Gonzalez MD Consults: 02/20/19 20:54 General Surgery Consult Routine Comment: Consulting Provider: Kashmir Hunt Consulting Physician: Kashmir Hunt Reason for Consult: Abd Pain Time Spent in preparation of Discharge (in minutes): 45 Hospital Course - Lab Results Lab Results: Most Recent Lab Values WBC 5.8 10^3/uL (4.5-11.0) 02/22/19 06:10 RBC 4.65 10^6/uL (3.5-6.1) 02/22/19 06:10 Hgb 14.2 g/dL (14.0-18.0) 02/22/19 06:10 Hct 42.2 % (42.0-52.0) 02/22/19 06:10 MCV 90.8 fl (80.0-105.0) 02/22/19 06:10 MCH 30.5 pg (25.0-35.0) 02/22/19 06:10 MCHC 33.6 g/dl (31.0-37.0) 02/22/19 06:10 RDW 12.3 % (11.5-14.5) 02/22/19 06:10 Plt Count 227 10^3/uL (120.0-450.0) 02/22/19 06:10 MPV 9.4 fl (7.0-11.0) 02/22/19 06:10 Neut % (Auto) 58.8 % (50.0-68.0) 02/22/19 06:10 Lymph % (Auto) 31.6 % (22.0-35.0) 02/22/19 06:10 [place] % (Auto) 8.7 % (1.0-6.0) H 02/22/19 06:10 Eos % (Auto) 0.7 % (1.5-5.0) L 02/22/19 06:10 Baso % (Auto) 0.2 % (0.0-3.0) 02/22/19 06:10 Lymph # (Auto) 1.8 (1.2-3.4) 02/22/19 06:10 [place] # (Auto) 0.5 (0.1-0.6) 02/22/19 06:10 Eos # (Auto) 0.0 (0.0-0.7) 02/22/19 06:10 Baso # (Auto) 0.01 K/mm3 (0.0-2.0) 02/22/19 06:10 Absolute Neuts (auto) 3.39 (1.4-6.5) 02/22/19 06:10 PT 11.9 SECONDS (9.4-12.5) 02/22/19 06:10 INR 1.05 02/22/19 06:10 Sodium 136 mmol/L (132-148) 02/22/19 06:10 Potassium 3.7 mmol/L (3.6-5.0) 02/22/19 06:10 Chloride 101 mmol/L (98-107) 02/22/19 06:10 Carbon Dioxide 27 mmol/L (21-33) 02/22/19 06:10 Anion Gap 12 (10-20) 02/22/19 06:10 BUN 7 mg/dL (7-21) 02/22/19 06:10 Creatinine 0.8 mg/dl (0.8-1.5) 02/22/19 06:10 Est GFR ( Amer) > 60 02/22/19 06:10 Est GFR (Non-Af Amer) > 60 02/22/19 06:10 Random Glucose 89 mg/dL (70-110) 02/22/19 06:10 Calcium 8.9 mg/dL (8.4-10.5) 02/22/19 06:10 Phosphorus 3.5 mg/dL (2.5-4.5) 02/21/19 06:00 Magnesium 1.9 mg/dL (1.7-2.2) 02/21/19 06:00 Total Bilirubin 1.1 mg/dL (0.2-1.3) 02/22/19 06:10 AST 44 U/L (17-59) 02/22/19 06:10 ALT 53 U/L (7-56) 02/22/19 06:10 Alkaline Phosphatase 79 U/L (38-126) 02/22/19 06:10 Lactate Dehydrogenase 488 U/L (333-699) 02/20/19 15:10 Total Creatine Kinase 179 U/L (35-230) 02/20/19 15:10 Troponin I < 0.01 ng/mL 02/20/19 15:10 Total Protein 7.0 g/dL (5.8-8.3) 02/22/19 06:10 Albumin 3.9 g/dL (3.0-4.8) 02/22/19 06:10 Globulin 3.2 gm/dL 02/22/19 06:10 Albumin/Globulin Ratio 1.2 (1.1-1.8) 02/22/19 06:10 Lipase 77 U/L (23-300) 02/20/19 15:10 Urine Color Yellow (YELLOW) 02/20/19 15:40 Urine Appearance Sl cloudy (CLEAR) 02/20/19 15:40 Urine pH 6.0 (4.7-8.0) 02/20/19 15:40 Ur Specific [place] >= 1.030 (1.005-1.035) 02/20/19 15:40 Urine Protein 30 mg/dL (<30 mg/dL) H 02/20/19 15:40 Urine Glucose (UA) Negative mg/dL (NEGATIVE) 02/20/19 15:40 Urine Ketones >=80 mg/dL (NEGATIVE) 02/20/19 15:40 Urine Blood Negative (NEGATIVE) 02/20/19 15:40 Urine Nitrate Negative (NEGATIVE) 02/20/19 15:40 Urine Bilirubin Small (NEGATIVE) H 02/20/19 15:40 Urine Urobilinogen 0.2 E.U./dL (<1 E.U./dL) 02/20/19 15:40 Ur Leukocyte Esterase Negative Balaji/uL (NEGATIVE) 02/20/19 15:40 Urine RBC None /hpf (0-2) 02/20/19 15:40 Urine WBC 2 - 5 /hpf (0-6) 02/20/19 15:40 Ur Epithelial Cells 4 - 5 /hpf (0-5) 02/20/19 15:40 Urine Bacteria Few /hpf (NONE) 02/20/19 15:40 Urine Opiates Screen Negative (NEGATIVE) 02/20/19 15:40 Urine Methadone Screen Negative (NEGATIVE) 02/20/19 15:40 Ur Barbiturates Screen Negative (NEGATIVE) 02/20/19 15:40 Ur Phencyclidine Scrn Negative (NEGATIVE) 02/20/19 15:40 Ur Amphetamines Screen Negative (NEGATIVE) 02/20/19 15:40 U Benzodiazepines Scrn Negative (NEGATIVE) 02/20/19 15:40 U Oth Cocaine Metabols Negative (NEGATIVE) 02/20/19 15:40 U Cannabinoids Screen Negative (NEGATIVE) 02/20/19 15:40 Alcohol, Quantitative < 10 mg/dL (0-10) 02/20/19 15:10 Hepatitis A IgM Ab Negative (NEGATIVE) 02/20/19 15:10 Hep Bs Antigen Negative (NEGATIVE) 02/20/19 15:10 Hep B Core IgM Ab Negative (NEGATIVE) 02/20/19 15:10 Hepatitis C Antibody Negative (NEGATIVE) 02/20/19 15:10 - Hospital Course Hospital Course: Marino Zafar, PGY-1, Internal Medicine Discharge Summary for Dr. Gonzalez 43 year old male with past medical history of alcohol abuse presented to the ED with complaint of abdominal and back pain for the past 2 months which significantly worsened over the past 10 days. The abdominal pain was intermittent and worsened with eating. The patient admitted to smoking 2 packs per day for 19 years and binge drinking 2 pints of alcohol every week on only Fridays, with the most recent drink being 5 days prior to presentation. In the ED, EKG showed NSR with HR of 96 bpm. CXR showed no active disease. CTA showed no evidence of aortic aneurysm, rupture or dissection and no evidence to suggest acute central PE. It also showed hepatomegaly with significant fatty heaptic infiltration, which was confirmed by abdominal ultrasound. LFTs were elevated but lipase remained within normal limits and Hepatitis panel was negative. On admission, patient was started on IV fluids, Bentyl 10 mg QID PRN for abdominal discomfort, along with home medications thiamine 100 mg, folic acid 1 mg, MVI, protonix 40 mg BID, and sucralfate 1 g BID. During admission, patient had one episode of blood tinged hematemesis but hemoglobin and hematocrit remained stable. LFTs trended down during this admission and were likely due to alcohol use. GI was consulted and recommended no intervention at this time as patient's hematemesis was transient and has had no symptoms of hematemesis since that time. Patient remained hypertensive throughout the admission with blood pressure in 150-160s/110s and was started on Lisinopril 5mg. For alcohol withdrawal, patient was started on CIWA Protocol, started on ativan 1 mg Q6 and 2 Q2PRN for withdrawal symptoms. Patient's CIWAs were less than 7 throughout this admission except for one score of 13. Patient was calm, without tremors, and had no heart palpitations this morning. Patient was found to be stable for withdrawal standpoint today. Patient was found to be stable and ready for discharge. Patient was counseled on the importance of smoking and alcohol cessation. Patient was told to follow up with his PCP within 3-5 days. Patient was told to start taking Lisinopril 5 mg and take all medications as prescribed. Patient was told to return to the emergency department if he had any new or concerning symptoms. This is a brief summary of the events that transpired at the hospital. For more information, please refer to the hospital documentation. Discharge Diagnoses Abdominal pain radiating to back 2/2 to gastritis vs. PUD Alcohol withdrawal Tobacco use - Date & Time of H&P Date of H&P: 02/20/19 Time of H&P: 19:27 Discharge Exam - Head Exam Head Exam: ATRAUMATIC, NORMAL INSPECTION, NORMOCEPHALIC - Eye Exam Eye Exam: EOMI, PERRL - Respiratory Exam Respiratory Exam: Clear to PA & Lateral, NORMAL BREATHING PATTERN. absent: Rales, Rhonchi, Wheezes - Cardiovascular Exam Cardiovascular Exam: Tachycardia, REGULAR RHYTHM, +S1, +S2. absent: Clicks, Gallop, Rubs - GI/Abdominal Exam GI & Abdominal Exam: Normal Bowel Sounds, Soft, Tenderness. absent: Distended, Firm, Guarding - Extremities Exam Extremities exam: full ROM, normal capillary refill, normal inspection - Neurological Exam Neurological exam: Alert, CN II-XII Intact, Normal Gait, Oriented x3 - Skin Skin Exam: Dry, Intact, Normal Color Discharge Plan - Discharge Medications Prescriptions: Folic Acid 1 mg PO DAILY 30 Days #30 tab Lisinopril [Zestril] 5 mg PO DAILY 30 Days #30 tab Multimineral/Multivitamin [Therapeutic-M Tab] 1 tab PO 0800 30 Days #30 tab Nicotine 21 mg/24 hr [Nicoderm Cq] 1 patch TD DAILY 30 Days #30 patch Pantoprazole [Protonix EC Tab] 40 mg PO BID 30 Days #30 ect Sucralfate [Carafate Tab] 1 gm PO BID 30 Days #60 tab Thiamine [Vitamin B1 Tab] 100 mg PO DAILY 30 Days #30 tab - Follow Up Plan Condition: FAIR Disposition: HOME/ ROUTINE Instructions: Acute Abdomen (Belly Pain), Adult (DC), Quitting Smoking, Alcohol Withdrawal (DC) Additional Instructions: Please follow up with primary care doctor within 3-5 days. 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 Please take all medications as prescribed. Please take lisinopril once a day for hypertension Please take sucralfate twice a day and protonix once a day for abdominal pain. Please return to the emergency department if you have any new or concerning symp toms. Referrals: Martha Vicente MD [Medical Doctor] - <Haseeb Gonzalez - Last Filed: 02/22/19 17:39> Provider - Provider Date of Admission: 02/20/19 18:22 Attending physician: Haseeb Gonzalez MD Consults: 02/20/19 20:54 General Surgery Consult Routine Comment: Consulting Provider: Kashmir Hunt Consulting Physician: Kashmir Hunt Reason for Consult: Abd Pain Hospital Course - Lab Results Lab Results: Most Recent Lab Values WBC 5.8 10^3/uL (4.5-11.0) 02/22/19 06:10 RBC 4.65 10^6/uL (3.5-6.1) 02/22/19 06:10 Hgb 14.2 g/dL (14.0-18.0) 02/22/19 06:10 Hct 42.2 % (42.0-52.0) 02/22/19 06:10 MCV 90.8 fl (80.0-105.0) 02/22/19 06:10 MCH 30.5 pg (25.0-35.0) 02/22/19 06:10 MCHC 33.6 g/dl (31.0-37.0) 02/22/19 06:10 RDW 12.3 % (11.5-14.5) 02/22/19 06:10 Plt Count 227 10^3/uL (120.0-450.0) 02/22/19 06:10 MPV 9.4 fl (7.0-11.0) 02/22/19 06:10 Neut % (Auto) 58.8 % (50.0-68.0) 02/22/19 06:10 Lymph % (Auto) 31.6 % (22.0-35.0) 02/22/19 06:10 [place] % (Auto) 8.7 % (1.0-6.0) H 02/22/19 06:10 Eos % (Auto) 0.7 % (1.5-5.0) L 02/22/19 06:10 Baso % (Auto) 0.2 % (0.0-3.0) 02/22/19 06:10 Lymph # (Auto) 1.8 (1.2-3.4) 02/22/19 06:10 [place] # (Auto) 0.5 (0.1-0.6) 02/22/19 06:10 Eos # (Auto) 0.0 (0.0-0.7) 02/22/19 06:10 Baso # (Auto) 0.01 K/mm3 (0.0-2.0) 02/22/19 06:10 Absolute Neuts (auto) 3.39 (1.4-6.5) 02/22/19 06:10 PT 11.9 SECONDS (9.4-12.5) 02/22/19 06:10 INR 1.05 02/22/19 06:10 Sodium 136 mmol/L (132-148) 02/22/19 06:10 Potassium 3.7 mmol/L (3.6-5.0) 02/22/19 06:10 Chloride 101 mmol/L (98-107) 02/22/19 06:10 Carbon Dioxide 27 mmol/L (21-33) 02/22/19 06:10 Anion Gap 12 (10-20) 02/22/19 06:10 BUN 7 mg/dL (7-21) 02/22/19 06:10 Creatinine 0.8 mg/dl (0.8-1.5) 02/22/19 06:10 Est GFR ( Amer) > 60 02/22/19 06:10 Est GFR (Non-Af Amer) > 60 02/22/19 06:10 Random Glucose 89 mg/dL (70-110) 02/22/19 06:10 Calcium 8.9 mg/dL (8.4-10.5) 02/22/19 06:10 Phosphorus 3.5 mg/dL (2.5-4.5) 02/21/19 06:00 Magnesium 1.9 mg/dL (1.7-2.2) 02/21/19 06:00 Total Bilirubin 1.1 mg/dL (0.2-1.3) 02/22/19 06:10 AST 44 U/L (17-59) 02/22/19 06:10 ALT 53 U/L (7-56) 02/22/19 06:10 Alkaline Phosphatase 79 U/L (38-126) 02/22/19 06:10 Lactate Dehydrogenase 488 U/L (333-699) 02/20/19 15:10 Total Creatine Kinase 179 U/L (35-230) 02/20/19 15:10 Troponin I < 0.01 ng/mL 02/20/19 15:10 Total Protein 7.0 g/dL (5.8-8.3) 02/22/19 06:10 Albumin 3.9 g/dL (3.0-4.8) 02/22/19 06:10 Globulin 3.2 gm/dL 02/22/19 06:10 Albumin/Globulin Ratio 1.2 (1.1-1.8) 02/22/19 06:10 Lipase 77 U/L (23-300) 02/20/19 15:10 Urine Color Yellow (YELLOW) 02/20/19 15:40 Urine Appearance Sl cloudy (CLEAR) 02/20/19 15:40 Urine pH 6.0 (4.7-8.0) 02/20/19 15:40 Ur Specific [place] >= 1.030 (1.005-1.035) 02/20/19 15:40 Urine Protein 30 mg/dL (<30 mg/dL) H 02/20/19 15:40 Urine Glucose (UA) Negative mg/dL (NEGATIVE) 02/20/19 15:40 Urine Ketones >=80 mg/dL (NEGATIVE) 02/20/19 15:40 Urine Blood Negative (NEGATIVE) 02/20/19 15:40 Urine Nitrate Negative (NEGATIVE) 02/20/19 15:40 Urine Bilirubin Small (NEGATIVE) H 02/20/19 15:40 Urine Urobilinogen 0.2 E.U./dL (<1 E.U./dL) 02/20/19 15:40 Ur Leukocyte Esterase Negative [place]aji/uL (NEGATIVE) 02/20/19 15:40 Urine RBC None /hpf (0-2) 02/20/19 15:40 Urine WBC 2 - 5 /hpf (0-6) 02/20/19 15:40 Ur Epithelial Cells 4 - 5 /hpf (0-5) 02/20/19 15:40 Urine Bacteria Few /hpf (NONE) 02/20/19 15:40 Urine Opiates Screen Negative (NEGATIVE) 02/20/19 15:40 Urine Methadone Screen Negative (NEGATIVE) 02/20/19 15:40 Ur Barbiturates Screen Negative (NEGATIVE) 02/20/19 15:40 Ur Phencyclidine Scrn Negative (NEGATIVE) 02/20/19 15:40 Ur Amphetamines Screen Negative (NEGATIVE) 02/20/19 15:40 U Benzodiazepines Scrn Negative (NEGATIVE) 02/20/19 15:40 U Oth Cocaine Metabols Negative (NEGATIVE) 02/20/19 15:40 U Cannabinoids Screen Negative (NEGATIVE) 02/20/19 15:40 Alcohol, Quantitative < 10 mg/dL (0-10) 02/20/19 15:10 Hepatitis A IgM Ab Negative (NEGATIVE) 02/20/19 15:10 Hep Bs Antigen Negative (NEGATIVE) 02/20/19 15:10 Hep B Core IgM Ab Negative (NEGATIVE) 02/20/19 15:10 Hepatitis C Antibody Negative (NEGATIVE) 02/20/19 15:10 Attending/Attestation - Attestation I have personally seen and examined this patient.: Yes I have fully participated in the care of the patient.: Yes I have reviewed all pertinent clinical information, including history, physical exam and plan: Yes Notes (Text): 02/22/19 17:28 Patient was seen and examined with medical scribe. 43yo male with PMH of alcohol abuse and HTN who presented to the ED with chest pain, abdominal pain and Epigastric abdominal pain. He was also found to have mild elevation of LFT . He had chest wall and epigastric tenderness. EKG was negative for acute ischemic changes.Serial troponins were normal. Chest pain has resolved. Patient had small amount of hematemesis, suspect Pinky-Hope tear.Hemoglobin remain stable Patient was evaluated by GI, no further work up is recommended.Patient is tolerating food. LFT are back to normal There is no sign of alcohol withdrawal at this time. Patient has been started on Lisinopril for HTN. He will be discharged home on PPI . Issue of ongoing alcohol abuse was discussed in detail with the patient. Management plan was discussed in detail with patient. Education was provided
[2019-02-22] MEDS ORDERED: Pantoprazole 40 mg EC Tab PO SCH (18:00)
== END 2019-02-22 15:34 | disposition home or self-care (01) ==
LOC: ED 13:16 → ERH 18:22 → 3RSO 22:47
PROVIDERS: ADMIT Internal Medicine; ATTEND Internal Medicine
DX: R10.13 Epigastric pain (principal); R10.11 Right upper quadrant pain; R07.9 Chest pain, unspecified; R00.0 Tachycardia, unspecified; K92.0 Hematemesis; F10.239 Alcohol dependence with withdrawal, unspecified; I10 Essential (primary) hypertension; E83.42 Hypomagnesemia; F17.210 Nicotine dependence, cigarettes, uncomplicated
CPT/HCPCS: 36415; 71045; 71275; 74175; 76700; 80053; 80074; 80320; 80324; 80345; 80346; 80349; 80353; 80358; 80361; 81001; 82550; 83615; 83690; 83735; 83992; 84100; 84484; 85014; 85018; 85025; 85610; 93005; 96361; 96365; 96372; 96375; 96376; 99285; C9113; G0378; J0360; J1644; J2060; J2270; J2405; J3411; J3480; J7030; J7120; Q9967